=== PATIENT | female | born 1945 | race Hispanic/Latino ===

== ENCOUNTER 2022-09-01 13:32 | Emergency (ER) | payer OTHER ==
--- OUTSIDE RECORDS SUMMARY | 2022-09-01 13:43 | XMS REPORT | Continuity of Care Document ---
:1945 Author Organization [facility] t Address [address] [facility]. [address] [place] [address] Care Team Providers Name Role Phone Pcp, Patient Does Not Have A Primary Care Physician [id number] Zachary Darby Attending Clinician Unavailable CHONG ROCHA Attending Clinician Unavailable NOHEMI ROWELL Attending Clinician Unavailable [facility] SE[facility] Attending Clinician Unavailable LAB90 Attending Clinician Unavailable Nohemi Rowell MD Attending Clinician [phone] Alan Slater DO Attending Clinician Doctor Unassigned, [place] Attending Clinician Unavailable Pily Buchanan Attending Clinician Stephanie Jensen MD Attending Clinician STEPHANIE JENSEN Attending Clinician Unavailable Hiram-Mbayo_A_AH Attending Clinician Unavailable Hiram-Mbayo_A_AH Admitting Clinician Unavailable Payers Payer Name Policy Type Policy Number Effective Date Expiration Date S bonnie [employer]ARE [place] [id number] 2019 PLUS 00:00:00 CLASSIC/VALUE WELLCARE [place] 7 [id number] 2021 CLASSIC NO 00:00:00 PREMIUM R2T Wellcare C1 [id number] 2020 [facility] 00:00:00 - [facility] [place]LLCARE OF [place] [id number] 2019 - [place] 00:00:00 (MEDICARE REPLACEMENT/ADV ANTAGE - HMO) Problems Condition Condition Condition Status Onset Resolution Last Treating Co mments Source Name Details Category Date Date Treatment Clinician Date 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 12-10 Seybol d rhinitis rhinitis 00:00: - due to due to 00 Externa pollen pollen l No known No known Disease Unive rs active active ity of problems problems [facility] [id number] Essential Problem Active Comm on (primary) Spirit hypertensi - CHI on [facility] [id number] Noncomplia Problem Active Co mmon nce with Spirit dietary - CHI restrictio [facility] [id number] Current Problem Active Common moderate Spirit episode of - CHI major depressive [facility] disorder Medical without Center prior episode [id number] Primary Problem Active Common insomnia Spirit - [facility] [id number] 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 [facility] Allergies, Adverse Reactions, Alerts Allergy Allergy Status Severity Reaction(s) Onset Inactive Treating Comm ents Source Name Type Date Date Clinician Sulfamet Propensi Active Other Erika hoxazole ty to 7-20 reaction( Seybo ld W-Trimet adverse 00:00: s): - hoprim reaction 00 Unknown Externa s l Na Propensi Active Other Erika Benzoate ty to 2-11 reaction( Seybo ld -Sulfame adverse 00:00: s): - thoxazol reaction 00 Unknown Exter na e-Trimet s l hoprim Metronid Propensi Active Other Erika azole ty to 06-18 reaction( Seybold adverse 00:00: s): - reaction 00 Unknown Externa s l Kdc:Camp Propensi Active Other Erika ow ty to 06-18 reaction( Seybold Dye+Tart adverse 00:00: s): - razine+L reaction 00 Unknown Exter na evofloxa s l vipul Mupiroci Propensi Active Shortness of 2019-0 Univers n ty to Breath 07-03 ity of Calcium adverse 00:00: [place] reaction 00 Medical s Branch Sulfamet Propensi Active Shortness of 2019-0 Univers hoxazole ty to Breath 07-03 ity of adverse 00:00: [place] reaction 00 Medical s Branch MUPIROCI DRUG Active High SOB 2019-0 Univers N INGREDI 07-03 ity of CALCIUM 00:00: [place] 00 Medical Branch CODEINE DRUG Active Swelling 2019-0 Univers INGREDI - ity of 00:00: [place] 00 Medical Branch IODINE DRUG Active Swelling 2020-0 Univers INGREDI - ity of 00:00: [place] 00 Medical Branch LEVOFLOX DRUG Active SOB 2020-0 Univers ACIN INGREDI - ity of 00:00: [place] 00 Medical Branch METRONID DRUG Active SOB 2020-0 Univers AZOLE INGREDI - ity of 00:00: [place] 00 Medical Branch SULFAMET DRUG Active SOB 2020-0 Univers HOXAZOLE INGREDI - ity of 00:00: [place] 00 Medical Branch Codeine Propensi Active Swelling 2020-0 Kelse y ty to 07-03 Seybold adverse 00:00: - reaction 00 Externa s l Iodine Propensi Active Swelling 2020-0 Erika ty to 07-03 Seybold adverse 00:00: - reaction 00 Externa s l Levoflox Propensi Active Shortness of 2019-0 Other Erika acin ty to Breath 07-03 reaction( Seybold adverse 00:00: s): - reaction 00 Unknown Externa s l Metronid Propensi Active Swelling 2020-0 Chayo ey azole ty to 07-03 Seybold Hcl adverse 00:00: - reaction 00 Externa s l Mupiroci Propensi Active Shortness of 2020-0 Erika n ty to Breath 2-26 Seybold Calcium adverse 00:00: - reaction 00 Externa s l Sulfamet Propensi Active Shortness of Erika hoxazole ty to Breath 2-26 Seybold adverse 00:00: - reaction 00 Externa s l sulfamet sulfamet Active Unknown Commo n hoxazole hoxazole Spirit / / - CHI trimetho trimetho [facility] metronid metronid Active Unknown Commo n azole azole [facility] codeine codeine Active Unknown [facility] 12337 Drug Active Unknown Common allergy [facility] NO KNOWN Drug Active [facility] ALLERGIE Class ity [facility] Medical Branch Social History Social Habit Start Date Stop Date Quantity Comments Source Exposure to Not sure [facility] SARS-CoV-2 (event) [facility] Branch History of Tobacco [facility] - [facility] Use [facility] Sex Assigned At [facility] Sp yang - [facility] Tobacco use and 2019-07-03 2019-07-03 [facility] Medical Branch Smoking Status Start Date Stop Date Source Ex-smoker 2021-11-18 00:00:00 2021-11-18 00:00:00 Erika lewisbold - External Never Smoker [facility] Medications Ordered Filled Start Stop Current Ordering Indication Dosage Frequency Signature Comments Components Source Medication Medication Date Date Medication? Clinician (SIG) Name Name Pantoprazol Yes [id number] 20mg Take 1 Erika e Sodium 20 - tablet (20 Se ybold MG oral 00:00: mg total) - Tablet 00 by mouth Externa Delayed daily l Response Montelukast Yes [id number] 10mg Take 1 Erika (Singulair) - tablet (10 Se ybold 10 MG oral 00:00: mg total) - Tablet 00 by mouth Externa tablet nightly l Trazodone 2021- No [id number] 50mg Take 1 Erika HCl 50 MG 02-03- tablet (50 Sey bold oral Tablet 00:00: 00:00 mg total) - 00 :00 by mouth Externa nightly l Amlodipine Yes [id number] TAKE 1 K elsey Besylate 9-20 TABLET(2.5 Seybo ld 2.5 MG oral 00:00: MG) BY - Tablet 00 MOUTH Externa DAILY l Doxepin HCl 2021- No [id number] 1{tbl} QD Take 1 Erika 3 MG oral 9-15 -29 tablet by Seyb old Tablet 00:00: 00:00 mouth - 00 :00 nightly as Externa needed l predniSONE Yes [id number] 10mg Take 1 K elsey (DELTASONE) 8-05 tablet (10 Se ybold 10 MG oral 00:00: mg total) - tablet 00 by mouth Externa daily l FLUTICASONE Yes [id number] 50ug Use 1 K elsey PROPIONATE, 8-05 spray (50 Sey bold NASAL, 50 00:00: mcg total) - MCG/ACT 00 in each Externa nasal nostril l Suspension daily Levothyroxi Yes [id number] 25ug Take 1 Erika ne Sodium 7-20 tablet (25 Seyb old 25 MCG oral 00:00: mcg total) - Tablet 00 by mouth Externa daily l Lisinopril Yes [id number] 20mg Take 1 K elsey 20 MG oral 7-20 tablet (20 Sey bold Tablet 00:00: mg total) - 00 by mouth Externa daily l traMADol 50 2019-0 Yes 50mg Take 50 mg Univers mg tablet 2-26 by mouth ity of 19:52: every 6 [place] [address] (six) Medical hours as Branch needed. traMADol 50 2019-0 Yes 50mg Take 50 mg Univers mg tablet 2-26 by mouth ity of 19:52: every 6 [place] 01 (six) Medical hours as Branch needed. traMADol 50 2020-0 Yes 50mg Take 50 mg Univers mg tablet 2-26 by mouth ity of 13:52: every 6 [place] 01 (six) Medical hours as Branch needed. traMADol 50 2020-0 Yes 50mg Take 50 mg Univers mg tablet 2-26 by mouth ity of 13:52: every 6 [place] 01 (six) Medical hours as Branch needed. Lisinopril Lisinopril No 1{table QD Lisinopril 10 MG 10 MG t} 10 MG Lisinopril Lisinopril No 1{table QD Lisinopril 10 MG 10 MG t} 10 MG Lisinopril Lisinopril No Lisinopril 10 MG 10 MG 10 MG Lisinopril Lisinopril No Lisinopril 20 MG 20 MG 20 MG Lisinopril Lisinopril No Lisinopril 10 MG 10 MG 10 MG Lisinopril Lisinopril No Lisinopril 20 MG 20 MG 20 MG Lisinopril Lisinopril No Lisinopril 10 MG 10 MG 10 MG Lisinopril Lisinopril No Lisinopril 20 MG 20 MG 20 MG Lisinopril Lisinopril No Lisinopril 20 MG 20 MG 20 MG Lisinopril Lisinopril No Lisinopril 10 MG 10 MG 10 MG Lisinopril Lisinopril No Lisinopril 20 MG 20 MG 20 MG Lisinopril Lisinopril No Lisinopril 10 MG 10 MG 10 MG Lisinopril Lisinopril No Lisinopril 20 MG 20 MG 20 MG Lisinopril Lisinopril No Lisinopril 10 MG 10 MG 10 MG Vital Signs Vital Name Observation Time Observation Value Comments Source Systolic blood 2022-02-03 18:02:00 152 mm[Hg] Erika Womackold - pressure External Diastolic blood 2022-02-03 18:02:00 76 mm[Hg] Ciarra Arredondo - pressure External Heart rate 2022-02-03 18:02:00 67 /min Erika landaverde - External Body temperature 2022-02-03 18:02:00 36.33 Adrianne Chayo lewis Serolandoold - External Respiratory rate 2022-02-03 18:02:00 17 /min Chayo Womackmiguelina - External Body height 2022-02-03 18:02:00 160 cm Erika landaverde - External Body weight 2022-02-03 18:02:00 71.215 kg Erika landaverde - External BMI 2022-02-03 18:02:00 27.81 kg/m2 Erika landaverde - External Oxygen saturation in 2022-02-03 18:02:00 99 /min Erika Arredondo - Arterial blood by External Pulse oximetry height 2021-06-18 13:00:00 63 [in_i] Common S pirit - [facility] weight 2021-06-18 13:00:00 159 [lb_av] Common [facility] temperature 2021-06-18 13:00:00 97.0 [degF] Common [facility] bmi 2021-06-18 13:00:00 28.16 kg/m2 Common [facility] oximetry 2021-06-18 13:00:00 96 % Common [facility] respiratory rate 2021-06-18 13:00:00 19 /min Comm on [facility] blood pressure 2021-06-18 13:00:00 175 mm[Hg] Common [facility] - systolic [facility] blood pressure 2021-06-18 13:00:00 81 mm[Hg] Common [facility] - diastolic [facility] height 2021-06-04 13:00:00 63 [in_i] Common [facility] weight 2021-06-04 13:00:00 161 [lb_av] Common [facility] temperature 2021-06-04 13:00:00 96.9 [degF] Common [facility] bmi 2021-06-04 13:00:00 28.52 kg/m2 [facility] oximetry 2021-06-04 13:00:00 98 % [facility] respiratory rate 2021-06-04 13:00:00 16 /min Comm on [facility] blood pressure 2021-06-04 13:00:00 160 mm[Hg] Common [facility] - systolic [facility] blood pressure 2021-06-04 13:00:00 86 mm[Hg] Common [facility] - diastolic [facility] Systolic blood 2021-01-30 18:55:00 193 mm[Hg] Univer sity of [facility] Diastolic blood 2021-01-30 18:55:00 86 mm[Hg] Unive rsity of pressure [facility] Heart rate 2021-01-30 18:55:00 100 /min Universi [facility] Body temperature 2021-01-30 18:55:00 36.94 [facility]ne [facility] 2021-01-30 18:55:00 18 /min Univ [facility] Body weight 2021-01-30 18:55:00 71.668 kg Universi [facility] BMI 2021-01-30 18:55:00 27.99 kg/m2 [facility] Oxygen saturation in 2021-01-30 18:55:00 95 /min [facility] Arterial blood by [facility] Pulse oximetry Branch Systolic blood 2019-07-03 19:48:00 171 mm[Hg] Univer sity of pressure [facility] Diastolic blood 2019-07-03 19:48:00 75 mm[Hg] Unive [facility] Heart rate 2019-07-03 19:48:00 92 /min [facility] height 2019-07-03 19:48:00 160 cm [facility] Body weight 2019-07-03 19:48:00 74.844 kg [facility] BMI 2019-07-03 19:48:00 29.23 kg/m2 [facility] Procedures Procedure Date / Time Performing Clinician Source Performed AUTHORIZATION FOR 2021-08-04 05:01:00 Doctor Unassigned, No Univ [facility] RELEASE OF PHI Name [facility] XR FOOT 3+ VW LEFT 2021-01-30 19:15:36 Pily Nunez [facility] Encounters Start End Encounter Admission Attending Care Care Encounter Source Date/Time Date/Time Type Type Clinicians Facility Department ID 2021-12-06 Outpatient Darby, STLMLC STLC [id number] Common 10:09:01 Zachary [facility] 2021-10-14 Outpatient Darby, STLMLC STLC [id number] Common 11:26:02 Zachary [facility] 2021-08-31 Outpatient Darby, STLMLC STLMLC [id number] Common 10:49:02 [facility] 2021-07-05 Outpatient Darby, STLMLC STLMLC [id number] Common 11:33:02 Zachary [facility] 2021-06-03 Outpatient Darby, STSURAJ STLMLC [id number] Common 13:12:02 Zachary [facility] 2021-06-02 Outpatient Darby, STSURAJ STLMLC [id number] Common 13:39:59 Zachary 32996 [facility] 2021-06-02 Outpatient Darby, STLMLC STLMLC [id number] Common 12:59:06 Zachary 97033 [facility] 2021-03-09 Emergency [facility] [id number] Univers 01:22:00 [facility] 2022-09-27 2022-09-27 Outpatient ERIKA ROCHA [id number] Erika 15:00:00 15:00:00 CHONG Seybol d 2022-09-01 2022-09-01 Outpatient ERIKA ROWELL [id number] Erika 00:00:00 00:00:00 NOHEMI Seybol d 2022-07-30 2022-07-30 Outpatient ERIKA ROCHA [id number] Erika 00:00:00 00:00:00 CHONG Seybol d 2022-06-04 2022-06-04 Outpatient ERIKA ROCHA [id number] Erika 00:00:00 00:00:00 CHONG Seybol d 2022-05-02 2022-05-02 Outpatient ERIKA ROCHA [id number] Erika 00:00:00 00:00:00 CHONG Seybol d 2022-04-04 2022-04-04 Outpatient ERIKA ROWELL [id number] Erika 00:00:00 00:00:00 NOHEMI Seybol d 2022-02-10 2022-02-10 Outpatient ERIKA ROCHA [id number] Erika 00:00:00 00:00:00 CHONG Seybol d 2022-02-04 2022-02-04 Outpatient JOHN PAUL TURNER [id number] Erika 10:00:00 10:00:00 Seybol d 2022-02-04 2022-02-04 Outpatient AJ, ERIKA MANZANO [id number] Erika 00:00:00 00:00:00 CHONG Seybol d 2022-02-03 2022-02-03 Outpatient LAB90 ERIKA MANZANO [id number] Erika 14:00:00 14:00:00 Seybol d 2022-02-03 2022-02-03 Outpatient AJ ERIKA MANZANO [id number] Erika 13:00:00 13:00:00 CHONG Seybol d 2022-01-20 2022-01-20 Outpatient AJ, ERIKA MANZANO [id number] Erika 08:30:00 08:30:00 CHONG Seybol d 2022-01-19 2022-01-19 Outpatient TARYNTone ERIKA MANZANO [id number] Erika 11:00:00 11:00:00 CHONG Seybol d 2021-12-22 2021-12-22 Outpatient LAB90 ERIKA MANZANO [id number] Erika 11:45:00 11:45:00 Seybol d 2021-12-22 2021-12-22 Office John Paul Rowell [id number] Erika 11:00:00 11:30:00 Visit Nohemi Layne [id number] Se rolandoold Somogyi [id number] [id number] 2021-12-10 2021-12-10 Office John Paul Slater [id number] Erika 10:45:00 11:15:00 Visit Alan Layne [id number] Se ybold [id number] [id number] 2021-12-09 2021-12-09 Outpatient ERIKA ROWELL [id number] Erika 00:00:00 00:00:00 NOHEMI Seybol d 2021-12-06 2021-12-06 (TEL) STLMLC STLMLC [id number] Co mmon 00:00:00 00:00:00 [facility] 2021-12-01 2021-12-01 Outpatient ERIKA ROWELL [id number] Erika 00:00:00 00:00:00 NOHEMI Seybol d 2021-11-24 2021-11-24 Outpatient LAB90 ERIKA ERIKA [id number] Erika 11:25:00 11:25:00 Seybol d 2021-11-24 2021-11-24 Office John Paul Rowell [id number] Erika 10:30:00 11:00:00 Visit Nohemi Layne [id number] Se aura [place] [id number] 2021-11-18 2021-11-18 Outpatient LAB90 ERIKA MANZANO [id number] Erika 11:30:00 11:30:00 Seybol d 2021-11-18 2021-11-18 Office John Paul Rowell [id number] Erika 10:45:00 11:15:00 Visit Nohemi Layne [id number] Se aura Aman 1.2.7.2.686 [id number] 2021-11-16 2021-11-16 Outpatient SORIN ERIKA MANZANO [id number] Erika 10:00:00 10:00:00 NOHEMI Womackol jose 2021-11-11 2021-11-11 Outpatient SORIN ERIKA MANZANO [id number] Erika 13:45:00 13:45:00 NOHEMI rolandool jose 2021-08-31 2021-08-31 (TEL) [facility] STLC [id number] Co mmon 00:00:00 00:00:00 [facility] 2021-08-04 2021-08-04 Orders Doctor DOOLEY [id number] Univers 00:00:00 00:00:00 Only Unassigned, PATRICIA [id number] ity of [place] [facility] [id number] Servando as [id number] [facility] 009 Branch 2021-06-22 2021-06-22 (TEL) STLC STLMLC [id number] Co mmon 00:00:00 00:00:00 [facility] 2021-06-18 2021-06-18 OFFICE STLMLC STLMLC [id number] Co mmon 00:00:00 00:00:00 VISIT Spirit ESTAB PT - CHI LEVEL 4 [facility] 2021-06-17 2021-06-17 (TEL) STLMLC STLMLC [id number] Co mmon 00:00:00 00:00:00 [facility] 2021-06-04 2021-06-04 OFFICE STLMLC STLMLC [id number] Co mmon 00:00:00 00:00:00 VISIT EST Spir it PT LEVEL 3 - CH[facility] 2021-05-11 2021-05-11 (TEL) STLMLC STLMLC [id number] Co mmon 00:00:00 00:00:00 [facility] 2021-01-30 2021-01-30 Emergency [facility], [facility] [id number] Univers 13:55:00 15:08:00 Pily [place] [id number] i ty of [place] 4.2.7.2.686 [facility] [id number] [facility] 084 Branch 2020-12-29 2020-12-29 (TEL) STLMLC STLMLC [id number] Co mmon 00:00:00 00:00:00 [facility] 2020-11-12 2020-11-12 Outpatient STLMLC STLMLC [id number] Common 00:00:00 00:00:00 [facility] 2020-11-12 2020-11-12 Outpatient STLMLC STLMLC [id number] Common 00:00:00 00:00:00 [facility] 2020-09-08 2020-09-08 Outpatient STLMLC STLMLC [id number] Common 00:00:00 00:00:00 [facility] 2019-07-03 2019-07-03 [facility] [id number] Univers 13:28:46 14:10:35 Visit Stephanie Garvey [id number] it y of Surgical 4.2.7.2.686 Servando as Specialti [id number] Il dical [address] Branch [place] 2019-07-03 2019-07-03 Outpatient Melanie [facility]EN [facility] [id number] Univers 13:45:00 13:45:00 STEPHANIE francisco [facility] 2019-06-26 2019-06-26 Outpatient Hiram-Mbayo VFP VFP [id number] [facility] 07:22:00 07:22:00 _A_AH [id number] Family Practic e 2019-06-26 2019-06-26 Outpatient Hiram-Mbayo VFP VFP [id number] [place] 07:22:00 07:22:00 _A_AH [id number] Family Practic e 2019-06-26 2019-06-26 Outpatient Hiram-Mbayo VFP VFP [id number] [facility] 07:22:00 07:22:00 _A_AH [id number] Family Practic e Results This patient has no known results.
[2022-09-01 14:42] LABS: Absolute Lymphocytes (CBC) 1.9 K/uL (0.7-4.9); Hematocrit 30.1 % (36.0-45.0); Lymphocytes % 32.5 % (15.3-44.8); MCV 95.1 fL (80-100); MPV 8.7 fL (7.6-11.3); RBC Red Blood Cell Count 3.16 M/uL (3.86-4.86)
--- NOTE | 2022-09-01 14:45 | RAD REPORT ---
EXAM DESCRIPTION: CT - Abdomen Pelvis Wo Contrast - 09/01/2022 2:07 pm CLINICAL HISTORY: ABD PAIN COMPARISON: CT ABDOMEN PELVIS WO CONTRAST dated 12/09/2011; CT ABDOMEN PELVIS WO CONTRAST dated 012; CT ABDOMEN PELVIS WO CONTRAST dated 12/08/2010; CT ABDOMEN PELVIS WO CONTRAST dated 06/09/2010 TECHNIQUE: Thin cut axial CT imaging of the abdomen and pelvis was performed without IV contrast. Mu ltiplanar reformats were generated and reviewed. All CT scans are performed using dose optimization technique as appropriate and may include automated exposure control or mA/KV adjustment according to patient size. FINDINGS: No suspicious findings in the lung bases. The liver demonstrates nodular contour, suggestive of cirrhosis, a progressive finding since the 2011 study. Spleen is slightly bulky, but not discretely enlarged. Prominent splenorenal varicosities. Ad renal glands, and pancreas show no suspicious findings. Gallbladder and biliary tree are also without suspicious finding. Symmetric renal contour, without suspicious parenchymal findings within limits of noncontrast techniq ue. No evidence of radiopaque calculi or hydroureteronephrosis. No dilated bowel loops or bowel wall thickening. No free air, or free fluid. Nonspecific fat strandin g in the lower retroperitoneum, and presacral space. Mild colonic diverticulosis. No hernia, mass or bulky lymphadenopathy. The urinary bladder is suboptimally distended, without significant finding. No suspicious bony findings. IMPRESSION: Stigmata of cirrhosis and prominent splenorenal varicosities, suggestive of portal hyper tension. Nonspecific mild edematous changes in the lower retroperitoneum and presacral space. No evidence of f ocal inflammatory process.
[2022-09-01 15:01] LABS: Albumin 2.8 g/dL (3.4-5.0); Bilirubin Total 1.1 mg/dL (0.2-1.0); Potassium 3.7 mEq/L (3.5-5.1); Protein, Total 7.7 g/dL (6.4-8.2)
[2022-09-01 15:16] LABS: Specific Gravity 1.022 (1.005-1.030); Urine Bacteria None Seen /HPF (<20); Urine Bilirubin NEGATIVE (Negative); Urine Blood Negative (Negative); Urine Clarity Turbid (Clear); Urine Color Yellow (Yellow); Urine Glucose NEGATIVE (Negative); Urine Mucus Slight /HPF (None Seen); Urine Protein 1+ (Negative); Urine RBC <5 /HPF (None Seen); Urine Urobilinogen 2+ (Normal)
--- NOTE | 2022-09-01 15:30 | EDPHYS ---
Physician Documentation [facility] Name: Evie Gill Age: 76 yrs Sex: Female : 1945 Arrival Date: 09/01/2022 Time: 13:32 Bed 10 Private MD: ED Physician New Moreno HPI: 09/01 14:40 This 76 yrs old Female presents to ER via Wheelchair with complaints of kb Abdominal Pain. 14:40 The patient presents with abdominal pain. Onset: The symptoms/episode began/occurred kb 1.5 week(s) ago. The symptoms do not radiate. Associated signs and symptoms: Pertinent positives: constipation, Pertinent negatives: nausea, vomiting, and diarrhea, fever. The symptoms are described as constant. Modifying factors: The symptoms are alleviated by nothing, the symptoms are aggravated by nothing. Severity of pain: At its worst the pain was moderate in the emergency department the pain is unchanged. The patient has experienced similar episodes in the past. The patient has not recently seen a physician. Historical: - Allergies: 13:53 Bactrim; ll1 13:53 Codeine; ll1 13:53 Flagyl; ll1 13:53 Iodine; ll1 13:53 Levaquin; ll1 13:54 PAPAYA; ll1 - PMHx: 13:53 COPD; Cirrhosis; Diabetes - NIDDM; Bronchitis; Emphysema; ll1 - Immunization history:: Adult Immunizations up to date. - Social history:: Smoking status: Patient/guardian denies using tobacco, the patient reports quitting approximately 45 years ago. ROS: 14:39 Constitutional: Negative for fever, chills, and weight loss. kb 14:39 Abdomen/GI: Positive for abdominal pain, constipation, Negative for nausea, vomiting, and diarrhea. 14:39 All other systems are negative. Exam: 14:39 Constitutional: This is a well developed, well nourished patient who is awake, alert, kb and in no acute distress. Head/Face: Normocephalic, atraumatic. ENT: Moist Mucous membranes Cardiovascular: Regular rate and rhythm with a normal S1 and S2. No gallops, murmurs, or rubs. No pulse deficits. Respiratory: Respirations even and unlabored. No increased work of breathing. Talking in full sentences Skin: Warm, dry with normal turgor. Normal color. MS/ Extremity: Pulses equal, no cyanosis. Neurovascular intact. Full, normal range of motion. Neuro: Awake and alert, GCS 15, oriented to person, place, time, and situation. Moves all extremities. Normal gait. 14:39 Abdomen/GI: Inspection: abdomen appears normal, Bowel sounds: normal, Palpation: soft, in all quadrants, mild abdominal tenderness, in the left upper quadrant and left lower quadrant. Vital Signs: 13:54 BP 174 / 90; Pulse 99; Resp 18; Temp 98.1; Pulse Ox 96% ; Height 5 ft. 3 in. ; Pain ll1 9/10; 15:49 BP 178 / 76; Pulse 89; Resp 16; Pulse Ox 97% on R/A; db 13:54 Pain Scale: Adult ll1 MDM: 13:48 Patient medically screened. kb 14:40 Data reviewed: vital signs, nurses notes. kb 15:27 Differential diagnosis: bowel obstruction, diverticulitis, gastritis, non-specific abd kb pain. Counseling: I had a detailed discussion with the patient and/or guardian regarding: the historical points, exam findings, and any diagnostic results supporting the discharge/admit diagnosis, lab results, radiology results, the need for outpatient follow up, a family practitioner, a case managers, to return to the emergency department if symptoms worsen or persist or if there are any questions or concerns that arise at home. ED course: Pt does not want an enema here and does not want staff to insert suppository, but requests that we give her a laxative suppository to administer to herself. . 09/01 13:48 Order name: CBC with Diff; Complete Time: 14:48 kb 09/01 13:48 Order name: CMP; Complete Time: 15:05 kb 09/01 13:48 Order name: Lipase; Complete Time: 15:05 kb 09/01 13:48 Order name: Urinalysis w/ reflexes; Complete Time: 15:20 kb 09/01 13:48 Order name: CT Abd/Pelvis - Without Contrast; Complete Time: 14:48 kb 09/01 13:48 Order name: IV Saline Lock; Complete Time: 14:38 kb 09/01 13:48 Order name: Labs collected and sent; Complete Time: 14:38 kb Administered Medications: 15:24 CANCELLED (Patient Refused): Fleet Enema TX 133 ml TX once; may repeat once kb 15:40 Drug: Dulcolax TX Suppository 10 mg Route: TX; db 15:50 Follow up: Response: No adverse reaction db Disposition: 19:05 Co-signature as Attending Physician, New Moreno DO I was immediately available on-site ms3 in the Emergency Department for consultation in the care of the patient. Disposition Summary: 09/01/22 15:30 Discharge Ordered Location: Home kb Condition: Stable kb Diagnosis - Abdominal pain, Generalized - left kb Followup: kb - With: Emergency Department - When: As needed - Reason: Worsening of condition Followup: kb - With: Private Physician - When: 2 - 3 days - Reason: Recheck today's complaints, Continuance of care, Re-evaluation by your physician Discharge Instructions: - Discharge Summary Sheet kb - Constipation, Adult, [id number] kb - Abdominal Pain, Adult, [id number] kb Forms: - Medication Reconciliation Form kb - Thank You Letter kb - Antibiotic Education kb - Prescription Opioid Use kb Signatures: Dispatcher [employer] EDLA Nisreen Layne FNP-Nick VILLASEÑOR-Chrissy Hendricks, RN RN 1 New Moreno DO DO ms3 Charlene Barr, RN RN db Corrections: (The following items were deleted from the chart) 13:56 13:53 Social history: Smoking status: Patient denies any tobacco usage or history of. ll1 ll1 15:24 15:21 Fleet Enema TX 133 ml TX once; may repeat once ordered. kb kb
--- NOTE | 2022-09-01 15:30 | ER ---
Nurse's Notes [facility] Name: Evie Gill Age: 76 yrs Sex: Female : 1945 Arrival Date: 09/01/2022 Time: 13:32 Bed 10 Private MD: Diagnosis: Abdominal pain, Generalized-left Presentation: 09/01 13:54 Coronavirus screen: Client denies travel out of the [place] in the last 14 days. At this ll1 time, the client does not indicate any symptoms associated with coronavirus-19. Ebola Screen: Patient denies travel to an Ebola-affected area in the 21 days before illness onset. Initial Sepsis Screen: Does the patient meet any 2 criteria? No. Patient's initial sepsis screen is negative. Does the patient have a suspected source of infection? Yes: Acute abdominal pain. Risk Assessment: Do you want to hurt yourself or someone else? Patient reports no desire to harm self or others. Onset of symptoms was August 22, 2022. 13:54 Method Of Arrival: Wheelchair ll1 13:54 Acuity: WON 3 ll1 13:55 Chief complaint: Patient states: Abd pain for 10 days. + constipation. No fever. ll1 Historical: - Allergies: 13:53 Bactrim; ll1 13:53 Codeine; ll1 13:53 Flagyl; ll1 13:53 Iodine; ll1 13:53 Levaquin; ll1 13:54 PAPAYA; ll1 - PMHx: 13:53 COPD; Cirrhosis; Diabetes - NIDDM; Bronchitis; Emphysema; ll1 - Immunization history:: Adult Immunizations up to date. - Social history:: Smoking status: Patient/guardian denies using tobacco, the patient reports quitting approximately 45 years ago. Screenin:49 [facility] ED Fall Risk Assessment (Adult) History of falling in the last 3 months, db including since admission No falls in past 3 months (0 pts) Confusion or Disorientation No (0 pts) Intoxicated or Sedated No (0 pts) Impaired Gait Yes (1 pt) Mobility Assist Device Used Yes (1 pt) Altered Elimination No (0 pt) Score/Fall Risk Level 0 - 2 = Low Risk Oriented to surroundings, Maintained a safe environment. Abuse screen: Denies threats or abuse. Denies injuries from another. Nutritional screening: No deficits noted. Tuberculosis screening: No symptoms or risk factors identified. Assessment: 15:24 Reassessment: Patient appears in no apparent distress at this time. Patient and/or db family updated on plan of care and expected duration. Pain level reassessed. Patient is alert, oriented x 3, equal unlabored respirations, skin warm/dry/pink. General: Appears in no apparent distress. comfortable, Behavior is calm, cooperative. Pain: Complains of pain in abdomen. Neuro: Level of Consciousness is awake, alert, obeys commands, Oriented to person, place, time, situation, Speech is normal. GI: Bowel sounds present X 4 quads. Abd is soft. 15:49 Reassessment: Patient appears in no apparent distress at this time. Patient and/or db family updated on plan of care and expected duration. Pain level reassessed. Patient is alert, oriented x 3, equal unlabored respirations, skin warm/dry/pink. Patient states feeling better. Vital Signs: 13:54 BP 174 / 90; Pulse 99; Resp 18; Temp 98.1; Pulse Ox 96% ; Height 5 ft. 3 in. ; Pain ll1 9/10; 15:49 BP 178 / 76; Pulse 89; Resp 16; Pulse Ox 97% on R/A; db 13:54 Pain Scale: Adult ll1 ED Course: 13:37 Patient arrived in ED. mr 13:39 Nisreen Layne, [facility] kb 13:39 New Moreno DO is Attending Physician. kb 13:55 Triage completed. ll1 13:56 Arm band placed on. ll1 14:08 CT Abd/Pelvis - Without Contrast In Process Unspecified. EDMS 14:38 CBC with Diff Sent. mb9 14:38 CMP Sent. mb9 14:38 Lipase Sent. mb9 14:39 Inserted saline lock: 20 gauge in left antecubital area, using aseptic technique. rs5 14:40 Urinalysis w/ reflexes Sent. rs5 15:22 Charlene Barr, MICHAEL is Primary Nurse. db 15:49 Patient has correct armband on for positive identification. Bed in low position. Call db light in reach. Side rails up X 1. Warm blanket given. 15:50 No provider procedures requiring assistance completed. IV discontinued, intact, db bleeding controlled, No redness/swelling at site. Administered Medications: 15:24 CANCELLED (Patient Refused): Fleet Enema AR 133 ml AR once; may repeat once kb 15:40 Drug: Dulcolax AR Suppository 10 mg Route: AR; db 15:50 Follow up: Response: No adverse reaction db Medication: 15:49 VIS not applicable for this client. db Outcome: 15:30 Discharge ordered by . kb 15:50 Discharged to home via wheelchair, with family. db 15:50 Condition: stable 15:50 Discharge instructions given to patient, family, Instructed on discharge instructions, follow up and referral plans. 15:51 Patient left the ED. db Signatures: Dispatcher [employer] EDMS Nisreen Layne, CHARLEEN-C PUBLIC STENOGRAPHER-Ckclaire Antonio, Carmela etienne Chrissy Connors, RN RN ll1 Charlene Barr, RN RN Carmela Alvarez, RN RN mb9 David Gaytan rs5 Corrections: (The following items were deleted from the chart) 13:56 13:53 Social history: Smoking status: Patient denies any tobacco usage or history of. ll1 ll1 13:57 13:54 Pulse 99bpm; Resp 18bpm; Pulse Ox 96%; Temp 98.1F; Pain 9/10, Adult; ll1 ll1
[2022-09-01] MEDS ORDERED: BISACODYL 10 MG RECTAL SUPP ONE (15:49)
[2022-09-01 15:55] VITALS: TEMP 98.1
[2022-09-01 15:57] VITALS: BP 178/76; O2SAT 97
== END 2022-09-01 15:51 | disposition home or self-care (01) ==
LOC: ER 13:32
DX: R10.84 Generalized abdominal pain (principal); K59.00 Constipation, unspecified; Z88.1 Allergy status to other antibiotic agents; Z88.5 Allergy status to narcotic agent; Z91.018 Allergy to other foods
CPT/HCPCS: 36415; 74176; 80053; 81001; 83690; 85025

== ENCOUNTER 2023-01-11 15:25 | Inpatient (IN) | payer OTHER ==
--- OUTSIDE RECORDS SUMMARY | 2023-01-11 15:29 | XMS REPORT | Continuity of Care Document ---
:1945 Author Organization [facility] t Address [address] [place] [address] Care Team Providers Name Role Phone Pcp, Patient Does Not Have A Primary Care Physician [id number] Zachary Darby Attending Clinician Unavailable CHONG ROCHA Attending Clinician Unavailable NOHEMI ROWELL Attending Clinician Unavailable LAB90 Attending Clinician Unavailable YUE GREENVILLE Attending Clinician Unavailable Nohemi Rowell MD Attending Clinician [phone] Alan Slater DO Attending Clinician Doctor Unassigned, Happy Attending Clinician Unavailable Pily Buchanan Attending Clinician Stephanie Jensen MD Attending Clinician STEPHANIE JENSEN Attending Clinician Unavailable Hiram-Mbayo_A_AH Attending Clinician Unavailable Hiram-Mbayo_A_AH Admitting Clinician Unavailable Payers Payer Name Policy Type Policy Number Effective Date Expiration Date S bonnie [employer] [place] [id number] 2019 PLUS 00:00:00 CLASSIC/VALUE WELLCARE [place]P [id number] 2021 CLASSIC NO 00:00:00 PREMIUM R2T Wellcare C1 [id number] 2020 [facility] 00:[facility] - [facility] [place]LLCARE OF [place] [id number] 2019 - [place] 00:00:00 (MEDICARE REPLACEMENT/ADV ANTAGE - HMO) Problems Condition Condition Condition Status Onset Resolution Last Treating Co mments Source Name Details Category Date Date Treatment Clinician Date 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:00: - major major 00 Externa 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 features 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 09-27 Se ybold to to 00:00: - conditions conditions 00 Ex terna classified classified l elsewhere elsewhere Hepatic Hepatic Disease Active Erika cirrhosis, cirrhosis, 09-27 Se ybold unspecifie unspecifie 00:00: - d hepatic d hepatic 00 Exte rna cirrhosis cirrhosis l type, type, unspecifie unspecifie d whether d whether ascites ascites present present 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 00:00: - mellitus mellitus 00 Ui Developer a without without l complicati complicati on, on, without without long-term long-term current current use of use of insulin insulin Stage 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 00:00: - disease disease 00 Externa l Vitamin D Vitamin D Disease Active Wes ruba deficiency deficiency 02-04 Se ybold 00:00: - 00 Externa l 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 12-10 Seybol d rhinitis rhinitis 00:00: - due to due to 00 Externa pollen pollen l [id number] Current Problem Active Common moderate Spirit episode of - [facility] major [facility] depressive [facility] disorder Medical without Center prior episode [id number] Primary Problem Active Common insomnia Spirit - [facility] [id number] Type 2 [place] [address] diabetes Spirit mellitus - CHI with other diabetic [facility] kidney Medical complicati Center on [id number] Type 2 Problem Active Common diabetes Spirit mellitus - [facility] with [facility] hiren, Medical without Center long-term current use of insulin [id number] Chronic Problem Active Common obstructiv [facility] COPD Center type [id number] Nonalcohol Problem Active Co mmon ic Spirit [place] - [facility]I titis (BOATENG) [facility] No known No known Disease Unive rs active active ity of problems problems [facility] [id number] Essential Problem Active Comm on (primary) Spirit hypertensi - [facility] on [facility] [id number] Noncomplia Problem Active Co mmon nce with Spirit dietary - CHI restrictio [facility] Allergies, Adverse Reactions, Alerts Allergy Allergy Status [...] Propensi Active Other Erika azole ty to 2-11 reaction( Seybold adverse 00:00: s): - reaction 00 Unknown Externa s l Kdc:Cache Propensi Active Other Erika ow ty to 2-11 reaction( Seybold Dye+Tart adverse 00:00: s): - razine+L reaction 00 Unknown Exter na evofloxa s l vipul Mupiroci Propensi Active Shortness of 2020-0 Univers n ty to Breath 2-26 ity of Calcium adverse 00:00: [place] reaction 00 [facility] s [facility] Sulfamet Propensi Active Shortness of 2020-0 Univers hoxazole ty to Breath 2-26 ity of adverse 00:00: [place] reaction 00 Medical s Branch MUPIROCI DRUG Active High SOB 2020-0 Univers N INGREDI 2-26 ity of CALCIUM 00:00: [facility] CODEINE DRUG Active Swelling 2020-0 Univers INGREDI 2-26 ity of 00:00: [facility] IODINE DRUG Active Swelling 2020-0 Univers INGREDI 2-26 ity of 00:00: [place] [facility] LEVOFLOX DRUG Active SOB 2019-0 Univers ACIN INGREDI - ity of 00:00: [place] 00 [facility] Branch METRONID DRUG Active SOB 2019-0 Univers AZOLE INGREDI - ity of 00:00: [place] 00 [facility] SULFAMET DRUG Active SOB 2019-0 Univers HOXAZOLE INGREDI 07-03 ity of 00:00: [place] 00 [facility] Codeine Propensi Active Swelling 2019-0 Kelse y ty to 07-03 Seybold adverse 00:00: - reaction 00 Externa s l Iodine Propensi Active Swelling 2019-0 Erika ty to 07-03 Seybold adverse 00:00: - reaction 00 Externa s l Levoflox Propensi Active Shortness of Other Erika acin ty to Breath 2 reaction( Seybold adverse 00:00: s): - reaction 00 Unknown Externa s l Metronid Propensi Active Swelling 2019-0 Chayo ey azole ty to 07-03 Seybold Hcl adverse 00:00: - reaction 00 Externa s l Mupiroci Propensi Active Shortness of 0 Erika n ty to Breath 07-03 Seybold Calcium adverse 00:00: - reaction 00 Externa s l Sulfamet Propensi Active Shortness of 2019-0 Erika hoxazole ty to Breath - Seybold adverse 00:00: - reaction 00 Externa s l Levoflox Propensi Active Shortness of Other Erika acin ty to Breath 2-17 reaction( Seybold adverse 00:00: s): - reaction 00 UnknownOt Exter na s her l reaction( s): Nausea/Vo miting Metronid Propensi Active Other Erika azole ty to 2-17 reaction( Seybold adverse 00:00: s): - reaction 00 Nausea/Vo Exter na s miting l Papaya Propensi Active Other Erika Derivati ty to 2-17 reaction( Seybo ld ves adverse 00:00: s): - reaction 00 Anaphylax Exter na s is l Trimetho Propensi Active Other Erika prim ty to 2-17 reaction( Seybold adverse 00:00: s): - reaction 00 Nausea/Vo Exter na s miting l NO KNOWN Drug Active Univers ALLERGIE Class ity of S [facility] sulfamet sulfamet Active Unknown Commo n hoxazole hoxazole [facility] / / - [facility]I trimetho trimetho [facility] metronid metronid Active Unknown Commo n azole azole [facility] codeine codeine Active Unknown [facility] [address] Drug Active Unknown Common allergy [facility] Social History Social Habit Start Date Stop Date Quantity Comments Source History of Tobacco [facility] - Use [facility] Sex Assigned At [facility] yang - [facility] Exposure to Not sure [facility] SARS-CoV-2 (event) [facility] Gender identity Erika chavarria - External Sexual orientation Erika Arredondo - External History of Social 2021-11-18 2021-11-18 Erika Arredondo - function 00:00:00 00:00:00 External Tobacco use and 2019-07-03 2019-07-03 Former user Universi ty of exposure 00:00:00 00:00:00 [facility] Smoking Status Start Date Stop Date Source Ex-smoker 2021-11-18 00:00:00 2021-11-18 00:00:00 Erika lewisbold - External Never Smoker [facility] Medications Ordered Filled Start Stop Current Ordering Indication Dosage Frequency Signature Comments Components Source Medication Medication Date Date Medication? Clinician (SIG) Name Name buPROPion Yes [id number] 75mg Take 1 Nehemiah lsey HCl 75 MG 8-10 tablet (75 Seyb old oral Tablet 00:00: mg total) - 00 by mouth Externa daily l Levothyroxi Yes [id number] 112ug Take 1 rEika ne Sodium 8-10 tablet Seybold 112 MCG 00:00: (112 mcg - oral Tablet 00 total) by Ext kelsea mouth l daily Nitrofurant Yes [id number] 100mg Take 1 Erika oin Monohyd 7-05 capsule Seybo ld Macro 00:00: (100 mg - (Macrobid) 00 total) by Exte rna 100 MG oral mouth 2 l Capsule times daily Albuterol Yes [id number] 2{puff} Q.25D Inhale 2 Erika HFA 108 (90 6-26 puffs into Se ybold Base) 00:00: the lungs - MCG/ACT IN 00 every 6 Ui Developer a AERS hours as l needed for wheezing Albuterol Yes [id number] 2{puff} Q.25D Inhale 2 Erika HFA 108 (90 6-26 puffs into Se ybold Base) 00:00: the lungs - MCG/ACT IN 00 every 6 Ui Developer a AERS hours as l needed for wheezing NIFEdipine Yes [id number] Apply 1 Erika 0.2 % in 6-20 applicatio Seybo ld Lidocaine 5 00:00: n. - % 60 g 00 rectally 2 Externa compounded times l rectal daily ointment (Apply pea-sized amount to fingertip and then apply just inside anus) Escitalopra Yes [id number] 10mg Take 1 Erika m Oxalate 6-20 tablet (10 Seyb old (Lexapro) 00:00: mg total) - 10 MG oral 00 by mouth Exter na Tablet daily l Montelukast Yes [id number] 10mg Take 1 Erika (SINGULAIR) 6-20 tablet (10 Se ybold 10 MG oral 00:00: mg total) - Tablet 00 by mouth Externa tablet nightly l Vitamin D, Yes [id number] 25280U Take 1 Erika Ergocalcife 6-20 capsule Seybo ld rol, 1.25 00:00: (50,000 - MG (69407 00 units Externa UT) oral total) by l Capsule mouth once a week NIFEdipine Yes [id number] Apply 1 Erika 0.2 % in 6-20 applicatio Seybo ld Lidocaine 5 00:00: n. - % 60 g 00 rectally 2 Externa compounded times l rectal daily ointment (Apply pea-sized amount to fingertip and then apply just inside anus) Escitalopra Yes [id number] 10mg Take 1 Erika m Oxalate 6-20 tablet (10 Seyb old (Lexapro) 00:00: mg total) - 10 MG oral 00 by mouth Exter na Tablet daily l Montelukast Yes [id number] 10mg Take 1 Erika (SINGULAIR) 6-20 tablet (10 Se ybold 10 MG oral 00:00: mg total) - Tablet 00 by mouth Externa tablet nightly l Vitamin D, Yes [id number] 66720Y Take 1 Erika Ergocalcife 6-20 capsule Seybo ld rol, 1.25 00:00: (50,000 - MG (39308 00 units Externa UT) oral total) by l Capsule mouth once a week NIFEdipine Yes [id number] Apply 1 Erika 0.2 % in 6-20 applicatio Seybo ld Lidocaine 5 00:00: n. - % 60 g 00 rectally 2 Externa compounded times l rectal daily ointment (Apply pea-sized amount to fingertip and then apply just inside anus) Escitalopra Yes [id number] 10mg Take 1 Erika m Oxalate 6-20 tablet (10 Seyb old (Lexapro) 00:00: mg total) - 10 MG oral 00 by mouth Exter na Tablet daily l Montelukast Yes [id number] 10mg Take 1 Erika (SINGULAIR) 6-20 tablet (10 Se ybold 10 MG oral 00:00: mg total) - Tablet 00 by mouth Externa tablet nightly l Vitamin D, Yes [id number] Take 1 Erika Ergocalcife 6-20 capsule Seybo ld rol, 1.25 00:00: (50,000 - MG (98947 00 units Externa UT) oral total) by l Capsule mouth once a week Hydrocortis Yes [id number] 25mg Apply 1 Erika one Acetate 5-23 suppositor Se ybold (Hemmorex-H 00:00: y (25 mg - C) 25 MG 00 total) Externa rectal rectally 2 l Suppository times daily Trazodone Yes [id number] 100mg Take 1 Ke lsey HCl 100 MG 5-23 tablet Seybold oral Tablet 00:00: (100 mg - 00 total) by Externa mouth l nightly Hydrocortis Yes [id number] 25mg Apply 1 Erika one Acetate 5-23 suppositor Se ybold (Hemmorex-H 00:00: y (25 mg - C) 25 MG 00 total) Externa rectal rectally 2 l Suppository times daily Trazodone 0 Yes [id number] 100mg Take 1 Ke lsey HCl 100 MG 5-23 tablet Seybold oral Tablet 00:00: (100 mg - 00 total) by Externa mouth l nightly Hydrocortis Yes [id number] 25mg Apply 1 Erika one Acetate 5-23 suppositor Se ybold (Hemmorex-H 00:00: y (25 mg - C) 25 MG 00 total) Externa rectal rectally 2 l Suppository times daily Trazodone Yes [id number] 100mg Take 1 Ke lsey HCl 100 MG 5-23 tablet Seybold oral Tablet 00:00: (100 mg - 00 total) by Externa mouth l nightly Hydrocortis Yes [id number] 25mg Apply 1 Erika one Acetate 5-23 suppositor Se ybold (Hemmorex-H 00:00: y (25 mg - C) 25 MG 00 total) Externa rectal rectally 2 l Suppository times daily Trazodone Yes [id number] 100mg Take 1 Ke lsey HCl 100 MG 5-23 tablet Seybold oral Tablet 00:00: (100 mg - 00 total) by Externa mouth l nightly NIFEdipine Yes [id number] Apply 1 Erika 0.2 % in 5-23 applicatio Seybo ld Lidocaine 5 00:00: n. - % 60 g 00 rectally 2 Externa compounded times l rectal daily ointment (Apply pea-sized amount to fingertip and then apply just inside anus) Hydrocortis Yes [id number] 25mg Apply 1 Erika one Acetate 5-23 suppositor Se ybold (Hemmorex-H 00:00: y (25 mg - C) 25 MG 00 total) Externa rectal rectally 2 l Suppository times daily Escitalopra Yes [id number] 10mg Take 1 Erika m Oxalate 5-23 tablet (10 Seyb old (Lexapro) 00:00: mg total) - 10 MG oral 00 by mouth Exter na Tablet daily l Trazodone Yes [id number] 100mg Take 1 Ke lsey HCl 100 MG 5-23 tablet Seybold oral Tablet 00:00: (100 mg - 00 total) by Externa mouth l nightly NIFEdipine 2022- No [id number] Apply 1 Erika 0.2 % in 09-27 applicatio Seyb old Lidocaine 5 00:00: 00:00 n. - % 60 g 00 :00 rectally 2 Externa compounded times l rectal daily ointment (Apply pea-sized amount to fingertip and then apply just inside anus) Escitalopra 2022- No [id number] 10mg Take 1 Erika m Oxalate 09-27 tablet (10 Sey bold (Lexapro) 00:00: 00:00 mg total) - 10 MG oral 00 :00 by mouth Exter na Tablet daily l Pantoprazol Yes [id number] TAKE 1 Erika e Sodium 20 3-26 TABLET(20 Sey bold MG oral 00:00: MG) BY - Tablet 00 MOUTH Externa Delayed DAILY l Response Pantoprazol 2022- No [id number] TAKE 1 Erika e Sodium 20 3-26 -20 TABLET(20 Se ybold MG oral 00:00: 00:00 MG) BY - Tablet 00 :00 MOUTH Externa Delayed DAILY l Response Montelukast Yes [id number] TAKE 1 Erika (SINGULAIR) 1-28 TABLET(10 Sey bold 10 MG oral 00:00: MG) BY - Tablet 00 MOUTH Externa tablet EVERY l NIGHT Montelukast 2022- No [id number] TAKE 1 Erika (SINGULAIR) 1-28 -20 TABLET(10 Se ybold 10 MG oral 00:00: 00:00 MG) BY - Tablet 00 :00 MOUTH Externa tablet EVERY l NIGHT Amlodipine 2021-05 Yes [id number] 2.5mg Take 1 Erika Besylate 0-26 tablet Seybold 2.5 MG oral 00:00: (2.5 mg - Tablet 00 total) by Externa mouth l daily Amlodipine 2021-05 Yes [id number] 2.5mg Take 1 Erika Besylate 0-26 tablet Seybold 2.5 MG oral 00:00: (2.5 mg - Tablet 00 total) by Externa mouth l daily Amlodipine 2021-05 Yes [id number] 2.5mg Take 1 Eriak Besylate 0-26 tablet Seybold 2.5 MG oral 00:00: (2.5 mg - Tablet 00 total) by Externa mouth l daily Amlodipine 2021-05 Yes [id number] 2.5mg Take 1 Erika Besylate 0-26 tablet Seybold 2.5 MG oral 00:00: (2.5 mg - Tablet 00 total) by Externa mouth l daily Amlodipine 2021-05 Yes [id number] 2.5mg Take 1 Erika Besylate 0-26 tablet Seybold 2.5 MG oral 00:00: (2.5 mg - Tablet 00 total) by Externa mouth l daily Calcium 600 Yes [id number] 1200mg Take 1,200 Erika MG oral 9-30 mg by Seybold Tablet 00:00: mouth - 00 daily Externa l Calcium 600 0 Yes [id number] 1200mg Take 1,200 Erika MG oral 9-30 mg by Seybold Tablet 00:00: mouth - 00 daily Externa l Calcium 600 0 Yes [id number] 1200mg Take 1,200 Erika MG oral 9-30 mg by Seybold Tablet 00:00: mouth - 00 daily Externa l Calcium 600 0 Yes [id number] 1200mg Take 1,200 Erika MG oral 9-30 mg by Seybold Tablet 00:00: mouth - 00 daily Externa l Vitamin D, 0 Yes [id number] 34910L Take 1 Erika Ergocalcife 9-30 capsule Seybo ld rol, 1.25 00:00: (50,000 - MG (53919 00 units Externa UT) oral total) by l Capsule mouth once a week Calcium 600 0 Yes [id number] 1200mg Take 1,200 Erika MG oral 9-30 mg by Seybold Tablet 00:00: mouth - 00 daily Externa l Vitamin D, 2021-0 2023- No [id number] 21986W Take 1 Erika Ergocalcife 9-30 06-20 capsule Seyb old rol, 1.25 00:00: 00:00 (50,000 - MG (59432 00 :00 units Externa UT) oral total) by l Capsule mouth once a week Pantoprazol Yes [id number] 20mg Take 1 Erika e Sodium 20 9-29 tablet (20 Se ybold MG oral 00:00: mg total) - Tablet 00 by mouth Externa Delayed daily l Response Montelukast Yes [id number] 10mg Take 1 Erika (Singulair) 02-03 tablet (10 Se ybold 10 MG oral 00:00: mg total) - Tablet 00 by mouth Externa tablet nightly l Trazodone 2022- No 50mg 1 tablet Wes sey HCl 50 MG 02-03 (50 mg Seybold oral Tablet 00:00: 00:00 total) - 00 :00 Externa l Trazodone 2021- No [id number] 50mg Take 1 Erika HCl 50 MG 02-03 tablet (50 Sey bold oral Tablet 00:00: 00:00 mg total) - 00 :00 by mouth Externa nightly l Amlodipine Yes [id number] TAKE 1 K elsey Besylate 01-25 TABLET(2.5 Seybo ld 2.5 MG oral 00:00: MG) BY - Tablet 00 MOUTH Externa DAILY l Doxepin HCl 2021- No [id number] 1{tbl} QD Take 1 Erika 3 MG oral 01-20 tablet by Seyb old Tablet 00:00: 00:00 mouth - 00 :00 nightly as Externa needed l predniSONE Yes [id number] 10mg Take 1 K elsey (DELTASONE) 8-05 tablet (10 Se ybold 10 MG oral 00:00: mg total) - tablet 00 by mouth Externa daily l FLUTICASONE Yes [id number] 50ug Use 1 K elsey PROPIONATE, 8-05 spray (50 Sey bold NASAL, 50 00:00: mcg total) - MCG/ACT 00 in each Externa nasal nostril l Suspension daily predniSONE Yes [id number] 10mg Take 1 K elsey (DELTASONE) 8-05 tablet (10 Se ybold 10 MG oral 00:00: mg total) - tablet 00 by mouth Externa daily l FLUTICASONE Yes [id number] 50ug Use 1 K elsey PROPIONATE, 8-05 spray (50 Sey bold NASAL, 50 00:00: mcg total) - MCG/ACT 00 in each Externa nasal nostril l Suspension daily predniSONE 0 2022- No [id number] 10mg Take 1 Erika (DELTASONE) 12-10-20 tablet (10 S eybold 10 MG oral 00:00: 00:00 mg total) - tablet 00 :00 by mouth Externa daily l FLUTICASONE 0 3- No [id number] 50ug Use 1 Erika PROPIONATE, 12-10-20 spray (50 Se ybold NASAL, 50 00:00: 00:00 mcg total) - MCG/ACT 00 :00 in each Externa nasal nostril l Suspension daily Levothyroxi 2021-0 Yes [id number] 25ug Take 1 Erika ne Sodium 7-20 tablet (25 Seyb old 25 MCG oral 00:00: mcg total) - Tablet 00 by mouth Externa daily l Lisinopril 0 Yes [id number] 20mg Take 1 K elsey 20 MG oral 7-20 tablet (20 Sey bold Tablet 00:00: mg total) - 00 by mouth Externa daily l Levothyroxi 2021-0 Yes [id number] 25ug Take 1 Erika ne Sodium 7-20 tablet (25 Seyb old 25 MCG oral 00:00: mcg total) - Tablet 00 by mouth Externa daily l Lisinopril 2021-0 Yes [id number] 20mg Take 1 K elsey 20 MG oral 7-20 tablet (20 Sey bold Tablet 00:00: mg total) - 00 by mouth Externa daily l Levothyroxi 2021-0 Yes [id number] 25ug Take 1 Erika ne Sodium 7-20 tablet (25 Seyb old 25 MCG oral 00:00: mcg total) - Tablet 00 by mouth Externa daily l Lisinopril 2021-0 Yes [id number] 20mg Take 1 K elsey 20 MG oral 7-20 tablet (20 Sey bold Tablet 00:00: mg total) - 00 by mouth Externa daily l Lisinopril 2021-0 Yes [id number] 20mg Take 1 K elsey 20 MG oral 7-20 tablet (20 Sey bold Tablet 00:00: mg total) - 00 by mouth Externa daily l Levothyroxi 2021-0 Yes [id number] 25ug Take 1 Erika ne Sodium 7-20 tablet (25 Seyb old 25 MCG oral 00:00: mcg total) - Tablet 00 by mouth Externa daily l Lisinopril 2021-0 Yes [id number] 20mg Take 1 K elsey 20 MG oral 7-20 tablet (20 Sey bold Tablet 00:00: mg total) - 00 by mouth Externa daily l Levothyroxi 2021-0 Yes [id number] 25ug Take 1 Erika ne Sodium 7-20 tablet (25 Seyb old 25 MCG oral 00:00: mcg total) - Tablet 00 by mouth Externa daily l Lisinopril 0 Yes [id number] 20mg Take 1 K elsey 20 MG oral 7-20 tablet (20 Sey bold Tablet 00:00: mg total) - 00 by mouth Externa daily l Levothyroxi 0 2022- No [id number] 25ug Take 1 Erika ne Sodium 7-20 08-10 tablet (25 Sey bold 25 MCG oral 00:00: 00:00 mcg total) - Tablet 00 :00 by mouth Externa daily l traMADol 50 2020-0 Yes 50mg Take 50 mg Univers mg tablet 2-26 by mouth ity of 19:52: every 6 [place] [address] (six) Medical hours as Branch needed. traMADol 50 2020-0 Yes 50mg Take 50 mg Univers mg tablet 2-26 by mouth ity of 19:52: every 6 [place] [address] (six) Medical hours as Branch needed. traMADol 50 2020-0 Yes 50mg Take 50 mg Univers mg tablet 2-26 by mouth ity of 13:52: every 6 [place] [address] (six) Medical hours as Branch needed. traMADol 50 2020-0 Yes 50mg Take 50 mg Univers mg tablet 2-26 by mouth ity of 13:52: every 6 [place] [address] (six) Medical hours as Branch needed. Lisinopril [...] Time Observation Value Comments Source Systolic blood 2022-12-15 16:02:00 155 mm[Hg] Erika Womackold - pressure External Diastolic blood 2022-12-15 16:02:00 73 mm[Hg] Ciarra Womackold - pressure External Heart rate 2022-12-15 16:02:00 78 /min Erika landaverde - External Body temperature 2022-12-15 16:02:00 36.61 Adrianne Chayo ey Seybold - External Respiratory rate 2022-12-15 16:02:00 15 /min Chayo Arredondo - External Body height 2022-12-15 16:02:00 160 cm Erika landaverde - External Body weight 2022-12-15 16:02:00 68.493 kg Erika landaverde - External BMI 2022-12-15 16:02:00 26.75 kg/m2 Erika landaverde - External Oxygen saturation in 2022-12-15 16:02:00 99 /min Erika Arredondo - Arterial blood by External Pulse oximetry Systolic blood 2022-10-31 13:41:00 158 mm[Hg] Erika Arredondo - pressure External Diastolic blood 2022-10-31 13:41:00 72 mm[Hg] Ciarra wallace Seybold - pressure External Heart rate 2022-10-31 13:41:00 98 /min Erika landaverde - External Body temperature 2022-10-31 13:41:00 36.67 Adrianne Chayo ey Seybold - External Respiratory rate 2022-10-31 13:41:00 14 /min Chayo ey Seybold - External Body height 2022-10-31 13:41:00 160 cm Erika Ledezma eybold - External Body weight 2022-10-31 13:41:00 68.493 kg Erika Ledezma eybold - External BMI 2022-10-31 13:41:00 26.75 kg/m2 Erika S eybold - External Systolic blood 2022-10-25 18:28:00 164 mm[Hg] Erika Seybold - pressure External Diastolic blood 2022-10-25 18:28:00 68 mm[Hg] Wesse y Seybold - pressure External Heart rate 2022-10-25 18:28:00 91 /min Erika Ledezma eybold - External Body temperature 2022-10-25 18:28:00 36.83 Adrianne Chayo ey Seybold - External Respiratory rate 2022-10-25 18:28:00 14 /min Chayo lewis Seybold - External Body height 2022-10-25 18:28:00 160 cm Erika Ledezma eybold - External Body weight 2022-10-25 18:28:00 68.04 kg Erika Ledezma eybold - External BMI 2022-10-25 18:28:00 26.57 kg/m2 Erika Ledezma eybold - External Systolic blood 2022-09-27 19:42:00 184 mm[Hg] Erika Seybold - pressure External Diastolic blood 2022-09-27 19:42:00 90 mm[Hg] Ciarra y Seybold - pressure External Heart rate 2022-09-27 19:42:00 101 /min Erika Ledezma eybold - External Body temperature 2022-09-27 19:42:00 36.72 Adrianne Chayo ey Seybold - External Respiratory rate 2022-09-27 19:42:00 16 /min Chayo lewis Seybold - External Body height 2022-09-27 19:42:00 160 cm Erika Ledezma eybold - External Body weight 2022-09-27 19:42:00 68.13 kg Erika Ledezma eybold - External BMI 2022-09-27 19:42:00 26.61 kg/m2 Erika S eybold - External Oxygen saturation in 2022-09-27 19:42:00 95 /min Erika Del Rioybmiguelina - Arterial blood by External Pulse oximetry Systolic blood 2022-02-03 18:02:00 152 mm[Hg] Erika Del Rioybold - pressure External Diastolic blood 2022-02-03 18:02:00 76 mm[Hg] Ciarra y Seybold - pressure External Heart rate 2022-02-03 18:02:00 67 /min Erika Ledezma eybold - External Body temperature 2022-02-03 18:02:00 36.33 Adrianne Chayo lewis Seybold - External Respiratory rate 2022-02-03 18:02:00 17 /min Chayo lewis Seybold - External Body height 2022-02-03 18:02:00 160 cm Erika lewisbold - External Body weight 2022-02-03 18:02:00 71.215 kg Erika lewisbold - External BMI 2022-02-03 18:02:00 27.81 kg/m2 Erika lewisbold - External Oxygen saturation in 2022-02-03 18:02:00 99 /min Erika Del Riorolandomiguelina - Arterial blood by External Pulse oximetry height 2021-06-18 13:00:00 63 [in_i] [facility] weight 2021-06-18 13:00:00 159 [lb_av] [facility] temperature 2021-06-18 13:00:00 97.0 [degF] [facility] bmi 2021-06-18 13:00:00 28.16 kg/m2 [facility] oximetry 2021-06-18 13:00:00 96 % [facility] respiratory rate 2021-06-18 13:00:00 19 /min [facility] blood pressure 2021-06-18 13:00:00 175 mm[Hg] [facility] - systolic [facility] blood pressure 2021-06-18 13:00:00 81 mm[Hg] [facility] height 2021-06-04 13:00:00 63 [in_i] [facility] weight 2021-06-04 13:00:00 161 [lb_av] [facility] temperature 2021-06-04 13:00:00 96.9 [degF] [facility] bmi 2021-06-04 13:00:00 28.52 kg/m2 [facility] oximetry 2021-06-04 13:00:00 98 % [facility] respiratory rate 2021-06-04 13:00:00 16 /min [facility] blood pressure 2021-06-04 13:00:00 160 mm[Hg] [facility] systolic [facility] blood pressure 2021-06-04 13:00:00 86 mm[Hg] [facility] diastolic [facility] Systolic blood 2021-01-30 18:55:00 193 mm[Hg] [facility] Diastolic blood 2021-01-30 18:55:00 86 mm[Hg] [facility] Heart rate 2021-01-30 18:55:00 100 /min [facility] Body temperature 2021-01-30 18:55:00 36.94 [facility] 2021-01-30 18:55:00 18 /min [facility] Body weight 2021-01-30 18:55:00 71.668 kg [facility] BMI 2021-01-30 18:55:00 27.99 kg/m2 [facility] Oxygen saturation in 2021-01-30 18:55:00 95 /min [facility] Arterial blood by [facility] Pulse oximetry Branch Systolic blood 2019-07-03 19:48:00 171 mm[Hg] [facility] Diastolic blood 2019-07-03 19:48:00 75 mm[Hg] [facility] Heart rate 2019-07-03 19:48:00 92 /min [facility] Body height 2019-07-03 19:48:00 160 cm [facility] Body weight 2019-07-03 19:48:00 74.844 kg [facility] BMI 2019-07-03 19:48:00 29.23 kg/m2 [facility] Procedures Procedure Date / Time Performing Clinician Source Performed [facility] 2022-10-31 14:27:08 Chong Rocha Sejulian ld - External AUTHORIZATION FOR 2021-08-04 05:01:00 Doctor Unassigned, No [facility] RELEASE OF PHI Name Medical Branch XR FOOT 3+ VW LEFT 2021-01-30 19:15:36 Pily Nunez [facility] Encounters Start End Encounter Admission Attending Care Care Encounter Source Date/Time Date/Time Type Type Clinicians Facility Department ID 2021-12-06 Outpatient Darby, STLMLC STLMLC [id number] Common 10:09:01 Zachary [facility] 2021-10-14 Outpatient Darby, STLMLC STLMLC [id number] Common 11:26:02 Zachary [facility] 2021-08-31 Outpatient Darby, STLMLC STLMLC [id number] Common 10:49:02 Zachary [facility] 2021-07-05 Outpatient Darby, STLMLC STLMLC [id number] Common 11:33:02 Zachary [facility] 2021-06-03 Outpatient Darby, STLMLC STLMLC [id number] Common 13:12:02 Zachary [facility] 2021-06-02 Outpatient Darby, STLMLC STLMLC [id number] Common 13:39:59 Zachary 66922 [facility] 2021-06-02 Outpatient Darby, STLMLC STLMLC [id number] Common 12:59:06 Zachray 75598 [facility] 2021-03-09 Emergency [facility] [id number] Univers 01:22:00 ity [facility] 2023-01-12 2023-01-12 Outpatient ERIKA ROCHA [id number] Erika 11:00:00 11:00:00 CHONG Seybol d 2023-01-12 2023-01-12 Outpatient HUNDL, ERIKA MANZANO [id number] Erika 08:00:00 08:00:00 CHONG Seybol d 2023-01-10 2023-01-10 Outpatient SORIN ERIKA MANZANO [id number] Erika 00:00:00 00:00:00 NOHEMI Seybol d 2022-12-15 2022-12-15 Outpatient LAB90 ERIKA MANZANO [id number] Erika 11:45:00 11:45:00 Seybol d 2022-12-15 2022-12-15 Outpatient AJ, ERIKA MANZANO [id number] Erika 11:00:00 11:00:00 CHONG Seybol d 2022-12-15 2022-12-15 Outpatient ERIKA ROWELL [id number] Erika 00:00:00 00:00:00 NOHEMI Seybol d 2022-11-29 2022-11-29 Outpatient HUNDL, ERIKA MANZANO [id number] Erika 08:30:00 08:30:00 CHONG Seybol d 2022-11-09 2022-11-09 Outpatient AJ, ERIKA MANZANO [id number] Erika 00:00:00 00:00:00 CHONG Seybol d 2022-10-31 2022-10-31 Outpatient LAB90 ERIKA MANZANO [id number] Erika 10:15:00 10:15:00 Seybol d 2022-10-31 2022-10-31 Outpatient AJ, ERIKA MANZANO [id number] Erika 09:00:00 09:00:00 CHONG Seybol d 2022-10-27 2022-10-27 Outpatient ERIKA ROCHA [id number] Erika 00:00:00 00:00:00 CHONG Seybol d 2022-10-25 2022-10-25 Outpatient ERIKA ROCHA [id number] Erika 13:30:00 13:30:00 CHONG Seybol d 2022-10-07 2022-10-07 Outpatient ERIKA ROCHA [id number] Erika 10:00:00 10:00:00 CHONG Seybol d 2022-10-05 2022-10-05 Outpatient HUNDL, ERIKA MANZANO [id number] Erika 00:00:00 00:00:00 CHONG Seybol d 2022-09-27 2022-09-27 Outpatient HUNDL, ERIKA MANZANO [id number] Erika 15:00:00 15:00:00 CHONG Seybol d 2022-09-01 2022-09-01 Outpatient ERIKA ROWELL [id number] Erika 00:00:00 00:00:00 NOHEMI Seybol d 2022-07-30 2022-07-30 Outpatient HUNDL, ERIKA MANZANO [id number] Erika 00:00:00 00:00:00 CHONG Seybol d 2022-06-04 2022-06-04 Outpatient HUNDL, ERIKA MANZANO [id number] Erika 00:00:00 00:00:00 CHONG Seybol d 2022-05-02 2022-05-02 Outpatient HUNDL, ERIKA MANZANO [id number] Erika 00:00:00 00:00:00 CHONG Seybol d 2022-04-04 2022-04-04 Outpatient ERIKA ROWELL [id number] Erika 00:00:00 00:00:00 NOHEMI Seybol d 2022-02-10 2022-02-10 Outpatient TARYNLERIKA [id number] Erika 00:00:00 00:00:00 CHONG Seybol d 2022-02-04 2022-02-04 Outpatient YUE, JOHN PAUL MANZANO [id number] Erika 10:00:00 10:00:00 Seybol d 2022-02-04 2022-02-04 Outpatient HUNDL, ERIKA MANZANO [id number] Erika 00:00:00 00:00:00 CHONG Seybol d 2022-02-03 2022-02-03 Outpatient LAB90 ERIKA MANZANO [id number] Erika 14:00:00 14:00:00 Seybol d 2022-02-03 2022-02-03 Outpatient ERIKA ROCHA [id number] Erika 13:00:00 13:00:00 CHONG Seybol d 2022-01-20 2022-01-20 Outpatient AJ ERIKA MANZANO [id number] Erika 08:30:00 08:30:00 CHONG Seybol d 2022-01-19 2022-01-19 Outpatient TARYNTone ERIKA MANZANO [id number] Erika 11:00:00 11:00:00 CHONG Seybol d 2021-12-22 2021-12-22 Outpatient LAB90 ERIKA MANZANO [id number] Erika 11:45:00 11:45:00 Seybol d 2021-12-22 2021-12-22 Office John aPul Rowell [id number] Erika 11:00:00 11:30:00 Visit Nohemi Layne [id number] Se ybold Somogyi [id number] 2021-12-10 2021-12-10 Office John Paul Slater [id number] Erika 10:45:00 11:15:00 Visit Alan Layne [id number] Se ybold [id number] 2021-12-09 2021-12-09 Outpatient ERIKA ROWELL [id number] Erika 00:00:00 00:00:00 NOHEMI Seybol d 2021-12-06 2021-12-06 (TEL) [facility] [id number] Co mmon 00:00:00 00:00:00 [facility] 2021-12-01 2021-12-01 Outpatient ERIKA ROWELL [id number] Erika 00:00:00 00:00:00 NOHEMI Seybol d 2021-11-24 2021-11-24 Outpatient LAB90 ERIKA MANZANO [id number] Erika 11:25:00 11:25:00 Seybol d 2021-11-24 2021-11-24 Office John Paul Rowell [id number] Erika 10:30:00 11:00:00 Visit Nohemi Layne [id number] Se aura Hinojosayi [id number] 2021-11-18 2021-11-18 Outpatient LAB90 ERIKA MANZANO [id number] Erika 11:30:00 11:30:00 Reynaldo garcia 2021-11-18 2021-11-18 Office John Paul Rowell [id number] Erika 10:45:00 11:15:00 Visit Nohemi Layne [id number] Se aura Newton [id number] 2021-11-16 2021-11-16 Outpatient ERIKA ROWELL [id number] Erika 10:00:00 10:00:00 NOHEMI Del Riohenri garcia 2021-11-11 2021-11-11 Outpatient ERIKA ROWELL [id number] Erika 13:45:00 13:45:00 NOHEMI Jacobs jose 2021-08-31 2021-08-31 (TEL) STLMLC STLMLC [id number] Co mmon 00:00:00 00:00:00 [facility] 2021-08-04 2021-08-04 Orders Doctor SOUMYA [id number] [place] [address] 00:00:00 00:00:00 Only Unassigned, PATRICIA [id number] ity of Happy [facility] [id number] Servando as [id number] [address] 2021-06-22 2021-06-22 (TEL) STLMLC STLMLC [id number] Co mmon 00:00:00 00:00:00 Spirit [facility] 2021-06-18 2021-06-18 OFFICE STLMLC STLMLC [id number] Co mmon 00:00:00 00:00:00 VISIT [facility] LEVEL 4 [facility] 2021-06-17 2021-06-17 (TEL) STLMLC STLMLC [id number] Co mmon 00:00:00 00:00:00 [facility] 2021-06-04 2021-06-04 OFFICE STLMLC STLMLC [id number] Co mmon 00:00:00 00:00:00 VISIT EST Spir it PT LEVEL 3 - [facility] 2021-05-11 2021-05-11 (TEL) STLMLC STLMLC [id number] Co mmon 00:00:00 00:00:00 [facility] 2021-01-30 2021-01-30 Emergency [facility] [id number] Univers 13:55:00 15:08:00 Pily Carmel [id number] i [facility] [place] 4.2.7.2.686 [facility] [id number] [address] 2020-12-29 2020-12-29 (TEL) STLMLC STLMLC [id number] Co mmon 00:00:00 00:00:00 [facility] 2020-11-12 2020-11-12 Outpatient STLMLC STLMLC [id number] Common 00:00:00 00:00:00 [facility] 2020-11-12 2020-11-12 Outpatient STLMLC STLMLC [id number] Common 00:00:00 00:00:00 [facility] 2020-09-08 2020-09-08 Outpatient STLMLC STLMLC [id number] Common 00:00:00 00:00:00 [facility] 2019-07-03 2019-07-03 [email or web address] [id number] Univers 13:28:46 14:10:35 Visit [facility] [id number] it y of Surgical [id number] [facility] [id number] [place] [address] 2019-07-03 2019-07-03 [facility] [id number] Univers 13:45:00 13:45:00 STEPHANIE francisco [facility] 2019-06-26 2019-06-26 Outpatient Hiram-Sabrina P [facility] [address] [facility] [facility] 07:22:00 07:22:00 _A_AH [id number] [facility] Pract[facility] e 2019-06-26 2019-06-26 Outpatient Hiram-Colleeno VFP VFP [id number] [facility] 07:22:00 07:22:00 _A_AH [id number] Family Practic e 2019-06-26 2019-06-26 Outpatient Hiram-Colleeno VFP VFP [id number] [facility] 07:22:00 07:22:00 _A_ [id number] Family Practic e Results Test Description Test Time Test Comments Results Result Comments Source [facility] 2022-10-31 14:28:30 Test Item Value Reference Range Interpretation Comme nts [facility] left side (test code 1.31 See_Comment [Automated message] The system = 28808-7H) which generated this result transmitted ref erence range: 1.40 - 0.90 NA. The re ference range was not used to interpr et this result as normal/abnormal . [facility] (test 1.34 See_Comment P resentation Factors: code = 23752-7M) DiabetesExe rcise Modality: At RestNormal - 1. 40 - 1.00Borderline - 0.99 - 0.90Mild - 0.89 - 0.60Moderate - 0.59 - 0.30Severe - 0.29 - 0.00 [Au tomated message] The system which ge nerated this result transmitted ref erence range: 1.40 - 0.90 NA. The re ference range was not used to interpr et this result as normal/abnormal . Erika Arredondo - External
[2023-01-11 17:56] LABS: Absolute Lymphocytes (CBC) 2.2 K/uL (0.7-4.9); Hematocrit 25.5 % (36.0-45.0); Lymphocytes % 24.9 % (15.3-44.8); MCV 103.4 fL (80-100); MPV 9.3 fL (7.6-11.3); Platelets 175 thou/uL (152-406); RBC Red Blood Cell Count 2.46 M/uL (3.86-4.86)
[2023-01-11 18:03] LABS: Protime INR 1.14
[2023-01-11] MEDS ORDERED: NA CHLORIDE 0.9% 500 ML ONE (18:08)
[2023-01-11 18:24] LABS: Albumin 2.5 g/dL (3.4-5.0); Bilirubin Direct 0.5 mg/dL (0-0.2); Bilirubin Indirect, Calculated 0.5 mg/dL (0.2-0.8); Potassium 3.5 mEq/L (3.5-5.1); Protein, Total 7.2 g/dL (6.4-8.2); Thyroid Stimulating Hormone 0.076 uIU/mL (0.358-3.740); Troponin High Sensitivity 16.7 pg/mL (<58.9)
[2023-01-11 18:27] LABS: SARS-CoV-2 Antigen Rapid Res Negative (Negative)
[2023-01-11 18:33] LABS: Specific Gravity 1.027 (1.005-1.030); Urine Bacteria <20 /HPF (<20); Urine Bilirubin NEGATIVE (Negative); Urine Blood Negative (Negative); Urine Clarity Clear (Clear); Urine Color Yellow (Yellow); Urine Glucose NEGATIVE (Negative); Urine Mucus Slight /HPF (None Seen); Urine Protein 1+ (Negative); Urine RBC <5 /HPF (None Seen); Urine Urobilinogen 1+ (Normal); Urine pH 5.5 (5.0-7.0)
--- NOTE | 2023-01-11 19:03 | EDPHYS ---
Physician Documentation [facility] Name: Evie Gill Age: 77 yrs Sex: Female : 1945 Arrival Date: 01/11/2023 Time: 15:25 Bed 15 Private MD: ED Physician Ralph Paulson HPI: 01/11 16:07 This 77 yrs old Female presents to ER via Wheelchair with complaints of rn Weakness. 16:07 The patient presents to the emergency department with weakness of the entire body, rn generalized weakness. Onset: The symptoms/episode began/occurred 2 week(s) ago. Associated signs and symptoms: Pertinent negatives: fever, neck stiffness, seizure, syncope, double vision, visual field changes, loss of vision. Severity of symptoms: At their worst the symptoms were moderate in the emergency department the symptoms are unchanged. Current symptoms:. The patient has experienced similar episodes in the past. The patient has not recently seen a physician. Patient reports generalized weakness and malaise for at least 2 weeks. Reports got worse when started her levothyroxine. Denies any fever. Reports dark brown stool but no blood in stool or hematemesis. Patient has cirrhosis. Denies chest pain. Denies abdominal pain.. Historical: - Allergies: 16:00 Bactrim; ko1 16:00 Codeine; ko1 16:00 Flagyl; ko1 16:00 Iodine; ko1 16:00 Levaquin; ko1 16:00 PAPAYA; ko1 - PMHx: 16:00 Bronchitis; Emphysema; Diabetes - NIDDM; COPD; Cirrhosis; ko1 - Immunization history:: Adult Immunizations unknown. - Social history:: Smoking status: Patient denies any tobacco usage or history of. Patient uses alcohol, on a daily basis. - Family history:: not pertinent. - Hospitalizations: : No recent hospitalization is reported. ROS: 16:08 Constitutional: Negative for fever, chills, and weight loss, Eyes: Negative for injury, rn pain, redness, and discharge, Neck: Negative for injury, pain, and swelling, Cardiovascular: Negative for chest pain, palpitations, and edema, Respiratory: Negative for shortness of breath, cough, wheezing, and pleuritic chest pain, Abdomen/GI: Negative for abdominal pain, nausea, vomiting, diarrhea, and constipation, Back: Negative for injury and pain, MS/Extremity: Negative for injury and deformity, Skin: Negative for injury, rash, and discoloration, Neuro: Positive for generalized weakness Exam: 16:08 Constitutional: This is a well developed, well nourished patient who is awake, alert, rn and in no acute distress. Head/Face: Normocephalic, atraumatic. ENT: Dry mucous membranes, no stridor Cardiovascular: Tachycardic, regular. No pulse deficits. Respiratory: Speaking full sentences, unlabored. No increased work of breathing, no retractions or nasal flaring. Abdomen/GI: Soft, nontender. Skin: Warm, dry MS/ Extremity: Pulses equal, no cyanosis. Equal circumference. Neuro: Awake and alert, GCS 15, oriented to person, place, time, and situation. Cranial nerves II-XII grossly intact. Motor strength 4/5 in all extremities. Sensory grossly intact. 19:46 ECG was reviewed by the Attending Physician. rn Vital Signs: 15:58 BP 176 / 78; Pulse 107; Resp 16; Temp 98.2; Pulse Ox 96% ; ko1 19:31 BP 171 / 67; Pulse 96; Resp 18; Pulse Ox 97% on R/A; me1 20:49 BP 168 / 80; Pulse 96; Resp 19; Pulse Ox 95% on R/A; me1 21:27 BP 153 / 68; Pulse 100; Resp 17; Pulse Ox 94% on R/A; me1 MDM: 15:46 Patient medically screened. rn 19:00 Data reviewed: vital signs, nurses notes, lab test result(s), EKG, and as a result, I rn will admit patient. Consideration of Admission/Observation Patient was admitted/placed on observation. Escalation of care including admission/observation considered. Management of patient was discussed with the following: Hospitalist: . 19:01 Counseling: I had a detailed discussion with the patient and/or guardian regarding the rn historical points, exam findings, and any diagnostic results supporting the discharge/admit diagnosis, lab results, radiology results, the need for further work-up and treatment in the hospital. ED course: Patient with almost two-point drop in hemoglobin since last visit, no melena but reports dark stool and symptoms present for 2 weeks, might be slow bleed given cirrhosis. No hematemesis or variceal bleeding. Stable vital signs. Has seen Dr. Bourgeois before with scope, will admit to hospitalist service with Dr. Bourgeois consult. 01/11 16:06 Order name: CBC with Diff; Complete Time: 18:38 rn 01/11 16:06 Order name: Basic Metabolic Panel; Complete Time: 18:38 rn 01/11 16:06 Order name: Protime (+inr); Complete Time: 18:38 rn 01/11 16:06 Order name: Ptt, Activated; Complete Time: 18:38 rn 01/11 16:06 Order name: LFT's; Complete Time: 18:38 rn 01/11 16:06 Order name: Urinalysis w/ reflexes; Complete Time: 18:38 rn 01/11 16:06 Order name: TSH; Complete Time: 18:38 rn 01/11 16:06 Order name: T4 Free; Complete Time: 18:38 rn 01/11 16:06 Order name: BNP; Complete Time: 18:38 rn 01/11 16:06 Order name: Troponin High Sensitivity; Complete Time: 18:38 rn 01/11 16:06 Order name: SARS RAPID; Complete Time: 18:38 rn 01/11 16:08 Order name: ETOH Level rn 01/11 16:06 Order name: EKG; Complete Time: 17:04 rn 01/11 20:42 Order name: CONS Physician Consult EDCO 01/11 16:06 Order name: IV Start; Complete Time: 17:48 rn 01/11 16:06 Order name: EKG - Nurse/Tech; Complete Time: 18:18 rn EC:46 Rate is 100 beats/min. Rhythm is regular. QRS [place] is Normal. NM interval is normal. rn QRS interval is normal. QT interval is normal. No Q waves. T waves are Normal. No ST changes noted. Clinical impression: NSR w/ Non-specific ST/T Changes. Interpreted by me. Reviewed by me. Administered Medications: 17:58 Drug: NS 0.9% IV 500 ml Route: IV; Rate: bolus; Site: right antecubital; iw 19:55 Drug: Pantoprazole IVP 40 mg Route: IVP; Site: left antecubital; me1 21:23 Follow up: Response: No adverse reaction me1 20:06 Drug: Octreotide IV 50 mcg Route: IV; Rate: calculated rate; Site: right antecubital; me1 21:23 Follow up: Response: No adverse reaction me1 20:07 Drug: Octreotide Infusion (50 mcg/hr) - (Octreotide IV 500 mcg, NS 0.9% IV 500 ml) me1 Route: IV; Rate: 50 ml/hr; Site: right antecubital; 21:23 Follow up: Response: No adverse reaction me1 20:43 Drug: Pantoprazole IV 8 mg/hr Route: IV; Rate: 25 ml/hr; Site: left antecubital; me1 21:23 Follow up: Response: No adverse reaction me1 Disposition Summary: 01/11/23 19:02 Hospitalization Ordered Hospitalization Status: Inpatient Admission rn Provider: Yvon Julian rn Location: Telemetry/MedSurg (Inpatient) rn Condition: Stable rn Problem: an ongoing problem rn Symptoms: are unchanged rn Bed/Room Type: Standard rn Room Assignment: 404(01/11/23 21:08) eb1 Diagnosis - Unspecified cirrhosis of liver rn - Anemia, unspecified rn - Muscle weakness (generalized) rn Forms: - Medication Reconciliation Form rn - SBAR form rn - Leadership Thank You Letter rn Signatures: Dispatcher [employer] Hayde Gallegos RN RN Ralph Paulson MD MD rn Basinger, Emily, RN RN eb1 Serena Monzon RN RN ko1 Teresa Webster RN RN me1 Corrections: (The following items were deleted from the chart) 21:08 19:02 rn eb1
--- NOTE | 2023-01-11 19:03 | ER ---
Nurse's Notes [facility] Name: Evie Gill Age: 77 yrs Sex: Female : 1945 Arrival Date: 01/11/2023 Time: 15:25 Bed 15 Private MD: Diagnosis: Unspecified cirrhosis of liver;Anemia, unspecified;Muscle weakness (generalized) Presentation: 01/11 15:58 Chief complaint: Patient states: feeling generalized weakness and dont feel well for 2 ko1 weeks since she started taking thyroid meds. Coronavirus screen: At this time, the client does not indicate any symptoms associated with coronavirus-19. Ebola Screen: No symptoms or risks identified at this time. No acute neurological deficit is noted. Pre-hospital glucose is not applicable to this patient. Initial Sepsis Screen: Does the patient meet any 2 criteria? No. Patient's initial sepsis screen is negative. Does the patient have a suspected source of infection? No. Patient's initial sepsis screen is negative. Risk Assessment: Do you want to hurt yourself or someone else? Patient reports no desire to harm self or others. Onset of symptoms is unknown. 15:58 Method Of Arrival: Wheelchair ko1 15:58 Acuity: WON 3 ko1 Triage Assessment: 16:00 The onset of the patients symptoms was more than six hours ago. General: Appears ko1 distressed, uncomfortable, Behavior is cooperative, appropriate for age. Pain: Denies pain. Neuro: Reports weakness in generalized. 20:46 The onset of the patients symptoms was more than six hours ago. me1 Stroke Activation: Symptom onset > 6 hours Physician: Stroke Attending; Name: ; Notified At: ; Arrived At: Physician: Chief Stroke Resident; Name: ; Notified At: ; Arrived At: Physician: Stroke Resident; Name: ; Notified At: ; Arrived At: Physician: ED Attending; Name: ; Notified At: ; Arrived At: Physician: ED Resident; Name: ; Notified At: ; Arrived At: Historical: - Allergies: 16:00 Bactrim; ko1 16:00 Codeine; ko1 16:00 Flagyl; ko1 16:00 Iodine; ko1 16:00 Levaquin; ko1 16:00 PAPAYA; ko1 - PMHx: 16:00 Bronchitis; Emphysema; Diabetes - NIDDM; COPD; Cirrhosis; ko1 - Immunization history:: Adult Immunizations unknown. - Social history:: Smoking status: Patient denies any tobacco usage or history of. Patient uses alcohol, on a daily basis. - Family history:: not pertinent. - Hospitalizations: : No recent hospitalization is reported. Screenin:43 [facility] ED Fall Risk Assessment (Adult) History of falling in the last 3 months, me1 including since admission No falls in past 3 months (0 pts) Confusion or Disorientation No (0 pts) Intoxicated or Sedated No (0 pts) Impaired Gait Yes (1 pt) Mobility Assist Device Used Yes (1 pt) Altered Elimination No (0 pt) Score/Fall Risk Level 0 - 2 = Low Risk. Abuse screen: Denies threats or abuse. Nutritional screening: No deficits noted. Tuberculosis screening: No symptoms or risk factors identified. Assessment: 20:43 General: Appears uncomfortable, well groomed, well developed, well nourished, Behavior me1 is calm, cooperative, appropriate for age, Reports fatigue for >3 days, for about 2 weeks since she started taking her thyroid medication again.. Pain: Denies pain. Neuro: Level of Consciousness is awake, alert, obeys commands, Oriented to person, place, time, situation, Appropriate for age. Cardiovascular: Capillary refill < 3 seconds Patient's skin is warm and dry. Respiratory: Airway is patent Respiratory effort is even, unlabored, Respiratory pattern is regular, symmetrical. GI: Patient currently denies bloody stool. Vital Signs: 15:58 BP 176 / 78; Pulse 107; Resp 16; Temp 98.2; Pulse Ox 96% ; ko1 19:31 BP 171 / 67; Pulse 96; Resp 18; Pulse Ox 97% on R/A; me1 20:49 BP 168 / 80; Pulse 96; Resp 19; Pulse Ox 95% on R/A; me1 21:27 BP 153 / 68; Pulse 100; Resp 17; Pulse Ox 94% on R/A; me1 ED Course: 15:38 Patient arrived in ED. im 15:45 Ralph Paulson MD is Attending Physician. rn 16:00 Triage completed. ko1 16:00 Arm band placed on right wrist. Patient placed in waiting room, Patient notified of ko1 wait time. 17:51 Hayde Sepulveda, MICHAEL is Primary Nurse. iw 19:02 Yvon Julian is Hospitalizing Provider. rn 20:43 Patient has correct armband on for positive identification. Bed in low position. Call me1 light in reach. Side rails up X2. Provided Education on: POC. Verbalized understanding.. 20:43 Inserted saline lock: 22 gauge in left antecubital area, using aseptic technique. me1 20:43 No provider procedures requiring assistance completed. Inserted saline lock: 22 gauge me1 in right antecubital area, using aseptic technique. Administered Medications: 17:58 Drug: NS 0.9% IV 500 ml Route: IV; Rate: bolus; Site: right antecubital; iw 19:55 Drug: Pantoprazole IVP 40 mg Route: IVP; Site: left antecubital; me1 21:23 Follow up: Response: No adverse reaction me1 20:06 Drug: Octreotide IV 50 mcg Route: IV; Rate: calculated rate; Site: right antecubital; me1 21:23 Follow up: Response: No adverse reaction me1 20:07 Drug: Octreotide Infusion (50 mcg/hr) - (Octreotide IV 500 mcg, NS 0.9% IV 500 ml) me1 Route: IV; Rate: 50 ml/hr; Site: right antecubital; 21:23 Follow up: Response: No adverse reaction me1 20:43 Drug: Pantoprazole IV 8 mg/hr Route: IV; Rate: 25 ml/hr; Site: left antecubital; me1 21:23 Follow up: Response: No adverse reaction me1 Medication: 20:43 VIS not applicable for this client. me1 Outcome: 19:02 Decision to Hospitalize by Provider. rn 22:02 Admitted to Med/surg accompanied by tech, via stretcher, room 404, Report called to me1 MICHAEL Wilson 22:02 Condition: stable 22:02 Instructed on the need for admit. 22:46 Patient left the ED. ga1 Signatures: Hayde Sepulveda RN RN Ralph Paulson MD MD rn Oliver, Kathy, RN RN ko1 Mendoza, Itzel im Eddleman, Michelle, RN RN ga1
[2023-01-11] MEDS ORDERED: NA CHLORIDE 0.9% 1,000 ML ONE (19:54)
[2023-01-11] MEDS ORDERED: PANTOPRAZOLE 40 MG INJ ONE ×2 (19:54→20:11)
[2023-01-11] MEDS ORDERED: OCTREOTIDE ACETATE 500 MCG/ML ONE (19:55)
--- NOTE | 2023-01-11 20:04 | P.HP ---
Certification for Inpatient Patient admitted to: Inpatient With expected LOS: <2 Midnights Patient will require the following post-hospital care: None Practitioner: I am a practitioner with admitting privileges, knowledge of patient current condition, hospital course, and medical plan of care. Services: Services provided to patient in accordance with Admission requirements found in Title 42 Section 412.3 of the Code of Federal Regulations Patient History Date of Service: 01/11/23 History of Present Illness: 77-year-old male with a past medical history of emphysema, bronchitis, diabetes, COPD, cirrhosis presents to the ER with weakness. He reports weakness started 2 weeks ago and is progressively getting worse. He denies fever, nausea vomiting diarrhea, chest pain, edema, dizziness. He reports recently started on Synthroid, and symptoms have progressively getting worse. She reports history of EtOH use with dark brown stools but no blood in stools or vomitus. She reports history of esophageal varices with esophageal banding with Dr. Brand. She denies abdominal pain. Plan to admit for cirrhosis, anemia, muscle muscle weakness, he reports he has seen Dr. Brand in the past for esophageal banding. ER course 15:58 BP 176 / 78; Pulse 107; Resp 16; Temp 98.2; Pulse Ox 96% laboratory evaluate WBCs within normal limit macrocytic anemia hemoglobin 8.4, hematocrit 25.3, no left shift, sodium potassium normal, acute on chronic kidney injury BUN 21 creatinine 1.09, transaminitis AST elevated at 69, elevated alk phos 195, UA within normal limits. CT of the abdomen pelvis September 01, 2022 : Stigmata of cirrhosis and prominent splenorenal varicosities, suggestive of portal hypertension Allergies papaya Allergy (Severe, Verified 06/24/16 13:14) Anaphylaxis sulfamethoxazole [From Bactrim] Allergy (Severe, Verified 06/24/16 13:14) Anaphylaxis codeine Allergy (Verified 06/24/16 13:14) Nausea/Vomiting levofloxacin [From Levaquin] Adverse Reaction (Verified 06/24/16 13:14) Nausea/Vomiting metronidazole [From Flagyl] Adverse Reaction (Verified 06/24/16 13:14) Nausea/Vomiting trimethoprim [From Bactrim] Adverse Reaction (Verified 06/24/16 13:14) Nausea/Vomiting IODINE; IODINE CONTAINING Adverse Reaction (Intermediate, Uncoded 06/24/16 13:14) Nausea/Vomiting Home Medications: Paroxetine HCl [Paxil] 20 mg PO DAILY 12/26/11 Glimepiride [Amaryl] 2 mg PO BID 12/22/14 Levothyroxine [Synthroid] 50 mcg PO [id number] 06/24/16 Lisinopril [Zestril] 20 mg PO DAILY 06/24/16 hydrOXYzine HCL [Atarax] 50 mg PO Q8H PRN 06/24/16 - Past Medical/Surgical History Diabetic: Yes - Social History Alcohol use: Yes CD- Drugs: No Caffeine use: Yes Physical Examination - Studies Laboratory Data (last 24 hrs) 01/11/23 01/11/23 01/11/23 17:40 17:40 17:40 WBC 8.90 Hgb 8.4 L Hct 25.5 L Plt Count 175 PT 12.5 INR 1.14 APTT 34.0 Sodium 142 Potassium 3.5 BUN 21 H Creatinine 1.09 H Glucose 108 H Total Bilirubin 1.0 AST 69 H ALT 34 Alkaline Phosphatase 195 H Assessment and Plan - Plan Plan to admit for cirrhosis, anemia, muscle muscle weakness, he reports he has seen Dr. Brand in the past for esophageal banding. ER course 15:58 BP 176 / 78; Pulse 107; Resp 16; Temp 98.2; Pulse Ox 96% laboratory evaluate WBCs within normal limit macrocytic anemia hemoglobin 8.4, hematocrit 25.3, no left shift, sodium potassium normal, acute on chronic kidney injury BUN 21 creatinine 1.09, transaminitis AST elevated at 69, elevated alk phos 195, UA within normal limits. CT of the abdomen pelvis September 01, 2022 : Stigmata of cirrhosis and prominent splenorenal varicosities, suggestive of portal hypertension - Advance Directives Does patient have a Living Will: No Does patient have a Durable POA for Healthcare: No
[2023-01-11] MEDS ORDERED: OCTREOTIDE ACETATE 100 MCG/ML ONE (20:11)
[2023-01-11] MEDS ORDERED: NA CHLORIDE 0.9% 250 ML ONE (20:11)
[2023-01-11] MEDS ORDERED: ONDANSETRON 4 MG/2 ML VIAL IV PRN (21:07)
[2023-01-11] MEDS ORDERED: FLUMAZENIL 0.1 MG/ML (5 mL VIAL) IV PRN (21:07)
[2023-01-11] MEDS: LORazepam 2 MG/ML VIAL IV SCH (21:07)
[2023-01-11] MEDS ORDERED: GLUCAGON 1 MG/VIAL IM PRN (21:08)
[2023-01-11] MEDS ORDERED: D50W 25 GM/50 ML SYRINGE IV PRN (21:08)
[2023-01-11] MEDS ORDERED: D10W 125 ML IV PRN (21:15)
--- NOTE | 2023-01-11 21:30 | P.HP ---
Certification for Inpatient Patient admitted to: Inpatient With expected LOS: <2 Midnights Patient will require the following post-hospital care: None Practitioner: I am a practitioner with admitting privileges, knowledge of patient current condition, hospital course, and medical plan of care. Services: Services provided to patient in accordance with Admission requirements found in Title 42 Section 412.3 of the Code of Federal Regulations Patient History Date of Service: 01/12/23 Reason for admission: Diarrhea History of Present Illness: 77-year-old male with a past medical history of emphysema, bronchitis, diabetes, COPD, cirrhosis presents to the ER with weakness. He reports weakness started 2 weeks ago and is progressively getting worse. She reports dark brown, loose stools she denies blood in stool or hematemesis, seizures, fever, nausea vomiting, chest pain, edema, dizziness. He reports recently started on Synthroid, and symptoms have progressively getting worse. She reports history of EtOH use with dark brown stools but no blood in stools or vomitus. She reports history of esophageal varices with esophageal banding with Dr. Brand. She denies abdominal pain. Plan to admit for cirrhosis, anemia, muscle muscle weakness, he reports he has seen Dr. Brand in the past for esophageal banding. ER course 15:58 BP 176 / 78; Pulse 107; Resp 16; Temp 98.2; Pulse Ox 96% laboratory evaluate WBCs within normal limit macrocytic anemia hemoglobin 8.4, hematocrit 25.3, no left shift, sodium potassium normal, acute on chronic kidney injury BUN 21 creatinine 1.09, transaminitis AST elevated at 69, elevated alk phos 195, UA within normal limits. CT of the abdomen pelvis September 01, 2022 : Stigmata of cirrhosis and prominent splenorenal varicosities, suggestive of portal hypertension Allergies papaya Allergy (Severe, Verified 01/12/23 01:48) Anaphylaxis sulfamethoxazole [From Bactrim] Allergy (Severe, Verified 01/12/23 01:48) Anaphylaxis codeine Allergy (Verified 01/12/23 01:48) Nausea/Vomiting levofloxacin [From Levaquin] Adverse Reaction (Verified 01/12/23 01:48) Nausea/Vomiting metronidazole [From Flagyl] Adverse Reaction (Verified 01/12/23 01:48) Nausea/Vomiting trimethoprim [From Bactrim] Adverse Reaction (Verified 01/12/23 01:48) Nausea/Vomiting IODINE; IODINE CONTAINING Adverse Reaction (Intermediate, Uncoded 01/12/23 01:48) Nausea/Vomiting Home Medications: Paroxetine HCl [Paxil] 20 mg PO DAILY 12/26/11 Glimepiride [Amaryl] 2 mg PO BID 12/22/14 Levothyroxine [Synthroid] 50 mcg PO [id number] 06/24/16 Lisinopril [Zestril] 20 mg PO DAILY 06/24/16 hydrOXYzine HCL [Atarax] 50 mg PO Q8H PRN 06/24/16 - Past Medical/Surgical History Diabetic: Yes - Social History Alcohol use: Yes CD- Drugs: No Caffeine use: Yes Review of Systems 10-point ROS is otherwise unremarkable Physical Examination - Physical Exam General: Alert, In no apparent distress, Oriented x3 HEENT: Atraumatic, Normocephalic, PERRLA Neck: Supple, 2+ carotid pulse no bruit, JVD not distended Respiratory: Clear to auscultation bilaterally, Normal air movement, Diminished Cardiovascular: No edema, Normal pulses, Regular rate/rhythm Capillary refill: <2 Seconds Gastrointestinal: Normal bowel sounds, Soft and benign Musculoskeletal: No clubbing, No swelling Integumentary: No rashes, No breakdown Neurological: Normal speech, Normal strength at 5/5 x4 extr, Normal tone - Studies Laboratory Data (last 24 hrs) 01/11/23 01/11/23 01/11/23 17:40 17:40 17:40 WBC 8.90 Hgb 8.4 L Hct 25.5 L Plt Count 175 PT 12.5 INR 1.14 APTT 34.0 Sodium 142 Potassium 3.5 BUN 21 H Creatinine 1.09 H Glucose 108 H Total Bilirubin 1.0 AST 69 H ALT 34 Alkaline Phosphatase 195 H Assessment and Plan - Plan Assessment and plan Cirrhosis esophageal varices Dark stools Acute kidney injury Transaminitis Episodic hypertension Macrocytic anemia Alcohol use Assessment and plan nausea vomiting Cirrhosis esophageal varices Episodic hypertension- propanolol ordered IV octreotide, IV pantoprazole GI consult, occult stool CT of the abdomen pelvis September 01, 2022 : Stigmata of cirrhosis and prominent splenorenal varicosities, suggestive of portal hypertension Acute kidney injury chronic kidney injury BUN 21 creatinine 1.09, Gentle IV fluids Transaminitis transaminitis AST elevated at 69 Macrocytic anemia Anglican refuses blood transfusion macrocytic anemia hemoglobin 8.4, hematocrit 25.3 Ferritin ordered, serum iron,, Folic acid, MVI Alcohol use CIWA protocol, Librium, Ativan, Diet n.p.o. Full code DVT SCDs Discharge Plan: Home Plan to discharge in: 48 Hours - Advance Directives Does patient have a Living Will: No Does patient have a Durable POA for Healthcare: No - Code Status/Comfort Care Code Status: Full Code Physician Review: Patient Assessed, Agree with Above Assessment and Plan Critical Care: No Time Spent Managing Pts Care (In Minutes): 50
[2023-01-11] MEDS: OCTREOTIDE 500 MCG in NA CHLORIDE 0.9% 500 ML IV SCH (22:00)
[2023-01-11] MEDS: PANTOPRAZOLE INJ 80 MG in NA CHLORIDE 0.9% 250 ML IV SCH (22:00)
[2023-01-11] MEDS: hydrOXYzine HCL 25 MG TAB PO PRN (23:59)
[2023-01-11] MEDS: NA CHLORIDE 0.9% 1,000 ML IV SCH (23:59)
[2023-01-12] MEDS: chlordiazePOXIDE HCl 25 MG CAP PO SCH ×5 (00:16→16:58)
[2023-01-12] MEDS: LORazepam 2 MG/ML VIAL IV SCH ×6 (01:07→20:43)
[2023-01-12 02:09] VITALS: BMI 26.2
[2023-01-12] MEDS ORDERED: METOPROLOL TARTRATE 5 MG/5 ML INJ IV PRN (05:20)
[2023-01-12] MEDS: OCTREOTIDE 500 MCG in NA CHLORIDE 0.9% 500 ML IV SCH ×2 (06:39→16:42)
[2023-01-12] MEDS ORDERED: NA CHLORIDE 0.9% 500 ML ONE (06:39)
[2023-01-12] MEDS ORDERED: OCTREOTIDE ACETATE 500 MCG/ML ONE (06:40)
[2023-01-12 06:44] LABS: Absolute Lymphocytes (CBC) 1.5 K/uL (0.7-4.9); Lymphocytes % 25.7 % (15.3-44.8); MPV 9.6 fL (7.6-11.3); Platelets 108 thou/uL (152-406); Protime INR 1.22; RBC Red Blood Cell Count 2.16 M/uL (3.86-4.86)
[2023-01-12 07:09] LABS: Albumin 2.2 g/dL (3.4-5.0); Bilirubin Total 1.1 mg/dL (0.2-1.0); Magnesium 1.8 mg/dL (1.6-2.4); Potassium 3.6 mEq/L (3.5-5.1); Protein, Total 6.1 g/dL (6.4-8.2); Thyroid Stimulating Hormone 0.051 uIU/mL (0.358-3.740)
[2023-01-12] MEDS: INSULIN LISPRO 100 UNIT/1 ML SQ SCH ×4 (07:30→20:25)
[2023-01-12] MEDS: PANTOPRAZOLE INJ 80 MG in NA CHLORIDE 0.9% 250 ML IV SCH ×2 (08:20→16:42)
[2023-01-12] MEDS: PROPRANOLOL HCL 10 MG TAB PO SCH ×2 (08:22→20:22)
[2023-01-12] MEDS ORDERED: POTASSIUM 25 MEQ EFFERV TAB PO ONE (09:00)
[2023-01-12 09:30] LABS: White Blood Cell Scan OK (OK)
[2023-01-12 09:31] LABS: Blood Morphology Comment NOT SEEN (NOT SEEN); Platelet Estimate DECR
[2023-01-12] MEDS: NA CHLORIDE 0.9% 1,000 ML IV SCH (12:15)
--- NOTE | 2023-01-12 12:27 | EKG ---
Test Date: 2023-01-11 Test Time: 17:57:02 Flaring Machine Operator: FRANTZ MEASUREMENT RESULTS: Intervals: Rate: 100 ND: 152 QRSD: 72 QT: 368 QTc: 474 [place]: P: 76 ND: 152 QRS: 65 T: 70 INTERPRETIVE STATEMENTS: Normal sinus rhythm Cannot rule out Anterior infarct, age undetermined Abnormal ECG Compared to ECG 01/20/2015 12:45:40 Myocardial infarct finding now present Sinus arrhythmia no longer present Electronically Signed On 01-12-23 12:24:52 CDT by Jamison Mccoy
--- NOTE | 2023-01-12 17:54 | P.PN ---
Subjective Date of Service: 01/12/23 Chief Complaint: Diarrhea Patient has no new complaint except generalized weakness. She denies melena today. Physical Examination - Vital Signs Temperature: 99.2 F Blood Pressure: 174/73 Pulse: 80 Respirations: 18 Pulse Ox (%): 89 - Studies Laboratory Data (last 24 hrs) 01/11/23 01/11/23 01/11/23 17:40 17:40 17:40 WBC 8.90 Hgb 8.4 L Hct 25.5 L Plt Count 175 PT 12.5 INR 1.14 APTT 34.0 Sodium 142 Potassium 3.5 BUN 21 H Creatinine 1.09 H Glucose 108 H Total Bilirubin 1.0 AST 69 H ALT 34 Alkaline Phosphatase 195 H Assessment And Plan - Plan Physical Exam General: Alert, In no apparent distress, Oriented x3 HEENT: Anicteric sclera Neck: Supple, JVD not distended Respiratory: Clear to auscultation bilaterally, Normal air movement, Diminished Cardiovascular: No edema, Normal pulses, Regular rate/rhythm Gastrointestinal: Normal bowel sounds, Soft and benign, nontender. Musculoskeletal: No swelling Integumentary: No rashes, No breakdown Neurological: Normal speech, no focal motor deficit. Diagnosis Liver cirrhosis History of esophageal varices. Microcytic anemia Alcohol use Hypertension Assessment and plan nausea vomiting Cirrhosis esophageal varices Hypertension History of portal hypertension Propranolol IV octreotide, IV pantoprazole given anemia. Prophylactic IV Rocephin. GI consulted Macrocytic anemia Patient is a Synagogue and against blood transfusion macrocytic anemia hemoglobin 8.4, hematocrit 25.3 Ferritin ordered, serum iron,, Folic acid, MVI PT consult for generalized weakness. Alcohol use [facility] protocol Diet n.p.o. Full code DVT SCDs Discharge Plan: Home
[2023-01-12] MEDS: NA CHLORIDE 0.9% 1,000 ML ONE ×2 (18:20→18:23)
[2023-01-12] MEDS ORDERED: propofoL 200 MG/20 ML VIAL IV ONE (18:53)
[2023-01-12] MEDS: MAGNESIUM CITRATE 300 ML BOT PO SCH (19:24)
[2023-01-12] MEDS ORDERED: BISACODYL E.C. 5 MG TAB PO ONE (20:00)
[2023-01-12] MEDS: METOCLOPRAMIDE 10 MG/2mL INJ IV SCH (20:22)
[2023-01-12] MEDS: GOLYTELY 4000 ML PO SCH (20:23)
[2023-01-13] MEDS: LORazepam 2 MG/ML VIAL IV SCH ×5 (00:35→17:07)
[2023-01-13] MEDS: PANTOPRAZOLE INJ 80 MG in NA CHLORIDE 0.9% 250 ML IV SCH ×4 (01:00→22:26)
[2023-01-13] MEDS: OCTREOTIDE 500 MCG in NA CHLORIDE 0.9% 500 ML IV SCH ×4 (01:00→22:25)
[2023-01-13] MEDS: METOCLOPRAMIDE 10 MG/2mL INJ IV SCH ×2 (01:10→09:07)
[2023-01-13] MEDS: chlordiazePOXIDE HCl 25 MG CAP PO SCH ×4 (05:22→17:48)
[2023-01-13 07:29] LABS: Absolute Lymphocytes (CBC) 1.8 K/uL (0.7-4.9); Hematocrit 25.6 % (36.0-45.0); MCV 102.5 fL (80-100); MPV 9.8 fL (7.6-11.3); Platelets 169 thou/uL (152-406)
[2023-01-13 07:30] LABS: Protime INR 1.24
[2023-01-13] MEDS: INSULIN LISPRO 100 UNIT/1 ML SQ SCH ×4 (07:30→20:31)
[2023-01-13 07:34] LABS: Albumin 2.3 g/dL (3.4-5.0); Bilirubin Total 1.3 mg/dL (0.2-1.0); Magnesium 1.9 mg/dL (1.6-2.4); Potassium 3.8 mEq/L (3.5-5.1); Protein, Total 6.5 g/dL (6.4-8.2)
[2023-01-13] MEDS ORDERED: POTASSIUM 25 MEQ EFFERV TAB PO ONE (09:00)
[2023-01-13] MEDS: PROPRANOLOL HCL 10 MG TAB PO SCH ×2 (09:08→20:31)
--- NOTE | 2023-01-13 18:21 | P.PN ---
Subjective Date of Service: 01/13/23 Chief Complaint: Diarrhea Patient has no new complaint. She is maintained on 3 L oxygen by nasal cannula. Physical Examination - Vital Signs Temperature: 98.1 F Blood Pressure: 164/74 Pulse: 71 Respirations: 16 Pulse Ox (%): 86 Assessment And Plan - Plan Physical Exam General: Alert, In no apparent distress, Oriented x3 HEENT: Anicteric sclera Neck: Supple, JVD not distended Respiratory: Clear to auscultation bilaterally, Normal air movement, Diminished Cardiovascular: No edema, Normal pulses, Regular rate/rhythm Gastrointestinal: Normal bowel sounds, Soft and benign, nontender. Musculoskeletal: No swelling Integumentary: No rashes, No breakdown Neurological: Normal speech, no focal motor deficit. Diagnosis Liver cirrhosis History of esophageal varices. Microcytic anemia Alcohol use Hypertension Assessment and plan nausea vomiting Cirrhosis esophageal varices Hypertension History of portal hypertension Continue propranolol IV octreotide, IV pantoprazole given anemia. Prophylactic IV Rocephin. Status post EGD and patient noted to have hemorrhagic gastritis. Dr. Bourgeois recommended colonoscopy tomorrow but patient refused the colonoscopy prep. Macrocytic anemia Patient is a Worship and against blood transfusion Hemoglobin has been stable so far. Folic acid, MVI PT consult for generalized weakness. Patient refused PT evaluation. Alcohol use Monitor for alcohol withdrawal. Full code DVT SCDs Discharge Plan: Home
--- NOTE | 2023-01-13 18:27 | P.DS ---
Admission Date: 01/11/23 Discharge Date: 01/16/23 Disposition: ID HOME/HOME HEALTH CARE Discharge Condition: FAIR Reason for Admission: Diarrhea Brief History of Present Illness: 77-year-old male with a past medical history of emphysema, bronchitis, diabetes, COPD, cirrhosis who presented to the ER with weakness. He reports weakness started 2 weeks ago and is progressively getting worse. She reports dark brown, loose stools she denies blood in stool or hematemesis, seizures, fever, nausea vomiting, chest pain, edema, dizziness. He reports recently started on Synthroid, and symptoms have progressively getting worse. She reported history of EtOH use with dark brown stools but no blood in stools or vomitus. She reports history of esophageal varices with esophageal banding with Dr. Brand. She denied abdominal pain. ER course 15:58 BP 176 / 78; Pulse 107; Resp 16; Temp 98.2; Pulse Ox 96% laboratory evaluate WBCs within normal limit macrocytic anemia hemoglobin 8.4, hematocrit 25.3, no left shift, sodium potass ium normal, acute on chronic kidney injury BUN 21 creatinine 1.09, transaminitis AST elevated at 69, elevated alk phos 195, UA within normal limits. CT of the abdomen pelvis September 01, 2022 : Stigmata of cirrhosis and prominent splenorenal varicosities, suggestive of portal hypertension. Patient was hospitalized for further management. Hospital Course: Diagnosis Liver cirrhosis History of esophageal varices. Microcytic anemia Alcohol use Hypertension Patient was admitted to the medical floor and the following medical problems addressed: Assessment and plan nausea vomiting Cirrhosis esophageal varices Hypertension History of portal hypertension Patient started on oral propranolol IV octreotide, IV pantoprazole given anemia. Patient seen by Dr. Bourgeois,status post EGD and patient noted to have hemorrhagic gastritis. Dr. Bourgeois recommended colonoscopy tomorrow but patient refused the colonoscopy prep. Patient is prescribed Protonix on discharge. Hemoglobin was stable. Patient did not require blood transfusion. Chronic respiratory failure with hypoxia/COPD/emphysema Home oxygen ordered on discharge. Patient was requiring 6 L of oxygen by nasal cannula. She opted to go home with hospice. Macrocytic anemia Patient is a L[employer] day and against blood transfusion Hemoglobin has been stable so far. Folic acid, MVI PT consulted for generalized weakness. Patient refused PT evaluation. Alcohol use No signs of alcohol withdrawal noted. Vital Signs/Physical Exam: Temp Pulse Resp BP Pulse Ox 98.1 F 71 16 164/74 H 86 L 01/13/23 18:21 01/13/23 18:21 01/13/23 18:21 01/13/23 18:21 01/13/23 18:21 General: Alert, In no apparent distress, Other (Frail-appearing.) HEENT: Mucous membr. moist/pink Neck: JVD not distended Respiratory: Clear to auscultation bilaterally, Normal air movement Cardiovascular: No edema, Regular rate/rhythm, Normal S1 S2 Gastrointestinal: Soft and benign, Non-distended, No tenderness Musculoskeletal: No swelling Neurological: Normal strength at 5/5 x4 extr Laboratory Data at Discharge: WBC 9.70 thou/uL (4.3-10.9) 01/13/23 07:00 Hgb 8.7 g/dL (12.0-15.0) L D 01/13/23 07:00 Hct 25.6 % (36.0-45.0) L 01/13/23 07:00 Plt Count 169 thou/uL (152-406) D 01/13/23 07:00 PT 13.6 SECONDS (9.5-12.5) H 01/13/23 07:00 INR 1.24 01/13/23 07:00 APTT 34.0 SECONDS (24.3-36.9) 01/11/23 17:40 Sodium 143 mEq/L (136-145) 01/13/23 07:00 Potassium 3.8 mEq/L (3.5-5.1) 01/13/23 07:00 BUN 20 mg/dL (7-18) H 01/13/23 07:00 Creatinine 1.15 mg/dL (0.55-1.02) H 01/13/23 07:00 Glucose 124 mg/dL (74-106) H 01/13/23 07:00 Phosphorus 2.7 mg/dL (2.5-4.9) 01/13/23 07:00 Magnesium 1.9 mg/dL (1.6-2.4) 01/13/23 07:00 Total Bilirubin 1.3 mg/dL (0.2-1.0) H 01/13/23 07:00 AST 58 U/L (15-37) H 01/13/23 07:00 ALT 24 U/L (13-56) 01/13/23 07:00 Alkaline Phosphatase 157 U/L (45-117) H 01/13/23 07:00 Home Medications: Levothyroxine [Synthroid*] 50 mcg PO [id number] 06/24/16 Lisinopril [Zestril] 20 mg PO DAILY 06/24/16 Propranolol [Inderal*] 20 mg PO BID #60 tab 01/13/23 New Medications: Propranolol [Inderal*] 20 mg PO BID #60 tab Diet: AHA Activity: Fall precautions Followup: Nohemi Gar MD [Primary Care Provider] - 1-2 Weeks Time spent managing pt's care (in minutes): 38
[2023-01-13] MEDS: GOLYTELY 4000 ML PO SCH (19:24)
[2023-01-13] MEDS: MAGNESIUM CITRATE 300 ML BOT PO SCH (19:24)
--- NOTE | 2023-01-13 21:31 | P.PN ---
Subjective Date of Service: 01/13/23 Chief Complaint: Melena, anemia, change in bowel habits / diarrhea Subjective: New changes (Patient refuses colonoscopy prep. Hemorrhagic gastritis can help explain anemia / GI bleed.) Physical Examination - Vital Signs Temperature: 98.1 F Blood Pressure: 154/74 Pulse: 71 Respirations: 16 Pulse Ox (%): 86 Assessment And Plan - Plan REC: 1) continue PPI therapy 2) advance diet: CLs, FLs, GI soft Physician Review: Patient Assessed, Agree with Above Assessment and Plan
[2023-01-13] MEDS: hydrOXYzine HCL 25 MG TAB PO PRN (22:32)
[2023-01-14] MEDS: chlordiazePOXIDE HCl 25 MG CAP PO SCH ×5 (05:47→23:49)
[2023-01-14 06:53] LABS: Absolute Lymphocytes (CBC) 1.9 K/uL (0.7-4.9); Hematocrit 24.9 % (36.0-45.0); Lymphocytes % 24.3 % (15.3-44.8); MCV 103.1 fL (80-100); MPV 9.6 fL (7.6-11.3); Platelets 155 thou/uL (152-406); RBC Red Blood Cell Count 2.41 M/uL (3.86-4.86)
[2023-01-14 06:59] LABS: Protime INR 1.22
[2023-01-14 07:15] LABS: Albumin 2.1 g/dL (3.4-5.0); Bilirubin Total 1.1 mg/dL (0.2-1.0); Potassium 3.8 mEq/L (3.5-5.1); Protein, Total 5.9 g/dL (6.4-8.2)
[2023-01-14] MEDS: INSULIN LISPRO 100 UNIT/1 ML SQ SCH ×4 (07:30→20:39)
[2023-01-14] MEDS ORDERED: ALBUTEROL 2.5 MG/3 ML NEB SOL NEB ONE (08:06)
[2023-01-14] MEDS ORDERED: POTASSIUM 25 MEQ EFFERV TAB PO ONE (08:06)
[2023-01-14] MEDS: OCTREOTIDE 500 MCG in NA CHLORIDE 0.9% 500 ML IV SCH ×2 (08:26→17:00)
[2023-01-14] MEDS: PANTOPRAZOLE INJ 80 MG in NA CHLORIDE 0.9% 250 ML IV SCH ×2 (08:27→17:00)
[2023-01-14] MEDS: PROPRANOLOL HCL 10 MG TAB PO SCH ×2 (10:00→20:37)
--- NOTE | 2023-01-14 15:56 | P.PN ---
Subjective Date of Service: 01/14/23 Chief Complaint: Melena, anemia, change in bowel habits / diarrhea Patient has been hypoxic on 3 L oxygen by nasal cannula. She denies any melena. Physical Examination - Vital Signs Temperature: 98.8 F Blood Pressure: 169/74 Pulse: 67 Respirations: 22 Pulse Ox (%): 90 Assessment And Plan - Plan Physical Exam General: Alert, In no apparent distress, Oriented x3 HEENT: Anicteric sclera Neck: Supple, JVD not distended Respiratory: Clear to auscultation bilaterally, Normal air movement, Diminished Cardiovascular: No edema, Normal pulses, Regular rate/rhythm Gastrointestinal: Normal bowel sounds, Soft and benign, nontender. Musculoskeletal: No swelling Integumentary: No rashes, No breakdown Neurological: Normal speech, no focal motor deficit. Diagnosis Liver cirrhosis History of esophageal varices. Microcytic anemia Alcohol use Hypertension Assessment and plan nausea vomiting Cirrhosis esophageal varices Hypertension History of portal hypertension Continue propranolol IV octreotide, IV pantoprazole given anemia. Transition to oral Protonix on discharge. Status post EGD and patient noted to have hemorrhagic gastritis. Dr. Bourgeois recommended colonoscopy but patient refused the colonoscopy prep. Macrocytic anemia Patient is a Ep[employer] and against blood transfusion Hemoglobin has been stable so far. Folic acid, MVI PT consulted for generalized weakness. Patient refused PT evaluation. Alcohol use Monitor for alcohol withdrawal. Acute on chronic respiratory failure with hypoxia/COPD/emphysema Patient with baseline emphysema I suspect interstitial edema contributing to the hypoxia given history of liver cirrhosis. Trial of IV Lasix Nebs and bronchodilators. We will avoid steroid for now given hemorrhagic gastritis. Full code DVT SCDs Discharge Plan: Home
[2023-01-14] MEDS: FUROSEMIDE 40 MG/4 ML VIAL IV SCH ×2 (16:47→17:00)
--- NOTE | 2023-01-14 17:20 | RAD REPORT ---
EXAM DESCRIPTION: RAD - Chest Single View - 01/14/2023 5:09 pm CLINICAL HISTORY: Hypoxia Chest pain. COMPARISON: Chest Pa And Lat (2 Views) dated 02/25/2016; CHEST SINGLE VIEW dated 07/30/2015; CHEST SI NGLE VIEW dated 01/20/2015; CHEST PA AND LAT 2 VIEW dated 06/16/2014 FINDINGS: Portable technique limits examination quality. Moderate bilateral pulmonary opacities likely represents pneumonia or pulmonary edema. The heart is u pper limit normal in size. No displaced fractures.
--- NOTE | 2023-01-14 18:48 | P.PN ---
Subjective Date of Service: 01/14/23 Chief Complaint: Melena, anemia, change in bowel habits / diarrhea Subjective: Improving (She feels well and is without complaint. She denies GI bleeding. Tolerating po diet. No diarrhea. She wants to go home.) Review of Systems 10-point ROS is otherwise unremarkable General: Weakness (Improved.), Malaise (Improved.) Physical Examination - Vital Signs Temperature: 98.6 F Blood Pressure: 169/74 Pulse: 67 Respirations: 22 Pulse Ox (%): 85 - Physical Exam General: Alert, In no apparent distress, Oriented x3, Cooperative HEENT: Atraumatic, Normocephalic, PERRLA, EOMI Neck: Supple Respiratory: Normal air movement Cardiovascular: Normal pulses Gastrointestinal: Soft and benign, No tenderness, No rebound, No guarding, Distended (Mild prominence of abdomen) Neurological: Normal speech, Normal strength at 5/5 x4 extr Assessment And Plan - Plan REC: 1) change PPI therapy from IV drip to 40 mg po bid 2) advance diet: FLs, GI soft 3) wean off IV Octreotide Physician Review: Patient Assessed, Agree with Above Assessment and Plan
[2023-01-14] MEDS: MAGNESIUM CITRATE 300 ML BOT PO SCH (19:24)
[2023-01-14] MEDS: PANTOPRAZOLE 40MG TABLET PO SCH (20:37)
[2023-01-15] MEDS: chlordiazePOXIDE HCl 25 MG CAP PO SCH ×3 (05:02→18:00)
[2023-01-15 05:59] LABS: Potassium 4.2 mEq/L (3.5-5.1)
[2023-01-15] MEDS: INSULIN LISPRO 100 UNIT/1 ML SQ SCH ×4 (07:30→21:00)
[2023-01-15] MEDS: PROPRANOLOL HCL 10 MG TAB PO SCH ×2 (09:00→20:24)
[2023-01-15] MEDS: PANTOPRAZOLE 40MG TABLET PO SCH ×2 (09:00→18:06)
[2023-01-15] MEDS: FUROSEMIDE 40 MG/4 ML VIAL IV SCH (09:01)
[2023-01-15 16:16] LABS: Blood O2 Saturation 70.4 % (92-98.5)
--- NOTE | 2023-01-15 17:34 | P.PN ---
Subjective Date of Service: 01/15/23 Chief Complaint: Melena, anemia, change in bowel habits / diarrhea Patient has been hypoxic on 3 L oxygen by nasal cannula. Oxygen increased to 6 - 8 L She is tolerating diet. Physical Examination - Vital Signs Temperature: 98.6 F Blood Pressure: 157/68 Pulse: 63 Respirations: 18 Pulse Ox (%): 84 Assessment And Plan - Plan Physical Exam General: Alert, In no apparent distress, Oriented x3 Neck: JVD not distended Respiratory: Clear to auscultation bilaterally, Diminished Cardiovascular: No edema, Normal pulses, Regular rate/rhythm Gastrointestinal: Normal bowel sounds, Soft and benign, nontender. Musculoskeletal: No swelling Integumentary: No rashes, No breakdown Neurological: Normal speech, no focal motor deficit. Diagnosis Liver cirrhosis History of esophageal varices. Microcytic anemia Alcohol use Hypertension Assessment and plan nausea vomiting Cirrhosis esophageal varices Hypertension History of portal hypertension Continue propranolol Oral Protonix. Discontinue octreotide. Status post EGD and patient noted to have hemorrhagic gastritis. Dr. Bourgeois recommended colonoscopy but patient refused the colonoscopy prep. Macrocytic anemia Patient is a Shinto and against blood transfusion Hemoglobin has been stable so far. Folic acid, MVI PT consulted for generalized weakness. Patient refused PT evaluation. Alcohol use No sign of alcohol withdrawal. Acute on chronic respiratory failure with hypoxia/COPD exacerbation/emphysema Patient with baseline emphysema I suspect interstitial edema contributing to the hypoxia given history of liver cirrhosis. Chest x-ray demonstrated possible pulmonary edema. Continue IV Lasix Nebs and bronchodilators. We will avoid steroid for now given hemorrhagic gastritis. Full code DVT SCDs Discharge Plan: Home
[2023-01-15] MEDS: MAGNESIUM CITRATE 300 ML BOT PO SCH (19:24)
[2023-01-16 05:26] VITALS: O2SAT 85
[2023-01-16] MEDS: chlordiazePOXIDE HCl 25 MG CAP PO SCH ×4 (06:00→18:06)
[2023-01-16 07:20] LABS: Absolute Lymphocytes (CBC) 1.7 K/uL (0.7-4.9); Hematocrit 25.1 % (36.0-45.0); Lymphocytes % 24.2 % (15.3-44.8); MCV 101.1 fL (80-100); MPV 9.4 fL (7.6-11.3); Platelets 177 thou/uL (152-406); RBC Red Blood Cell Count 2.48 M/uL (3.86-4.86)
[2023-01-16] MEDS: INSULIN LISPRO 100 UNIT/1 ML SQ SCH ×4 (07:30→21:00)
[2023-01-16 07:31] LABS: Albumin 2.1 g/dL (3.4-5.0); Magnesium 1.9 mg/dL (1.6-2.4); Protein, Total 6.1 g/dL (6.4-8.2)
--- NOTE | 2023-01-16 07:35 | RAD REPORT ---
EXAM DESCRIPTION: RAD - Chest Single View - 01/16/2023 6:32 am CLINICAL HISTORY: sob COMPARISON: Chest Single View dated 01/14/2023; Chest Pa And Lat (2 Views) dated 02/25/2016; CHEST SIN GLE VIEW dated 07/30/2015; CHEST SINGLE VIEW dated 01/20/2015 FINDINGS: Lines: None. Lungs: Irregular airspace disease present bilaterally. Aeration is slightly improved in the right awais g base. Calcified right upper lobe nodule. Pleural: Small pleural effusions difficult to exclude . Cardiac: Cardiomegaly. Mediastinum: Within normal limits. Bones: No acute fractures. Other: None IMPRESSION: Slightly improved aeration of the lungs which may reflect a edema and/or pneumonia.
[2023-01-16] MEDS: PANTOPRAZOLE 40MG TABLET PO SCH ×2 (08:05→16:00)
[2023-01-16] MEDS: PROPRANOLOL HCL 10 MG TAB PO SCH ×2 (09:11→21:32)
[2023-01-16] MEDS: FUROSEMIDE 40 MG TABLET PO SCH ×2 (09:12→17:40)
[2023-01-16] MEDS: MAGNESIUM CITRATE 300 ML BOT PO SCH (19:24)
[2023-01-16 21:11] VITALS: BP 184/74; TEMP 98.1
== END 2023-01-16 22:35 | disposition hospice, home (50) | DRG 432 ==
LOC: ER 15:25 → ERHOLD 20:37 → 4TH 21:30
PROVIDERS: ADMIT Internal Medicine; ATTEND Internal Medicine
PROC: 0DB78ZX Excision of Stomach, Pylorus, Via Natural or Artificial Opening Endoscopic, Diagnostic (ICD-10-PCS; 2023-01-12)
PROC: 0DB68ZX Excision of Stomach, Via Natural or Artificial Opening Endoscopic, Diagnostic (ICD-10-PCS; principal; 2023-01-12 17:00)
DX: K74.60 Unspecified cirrhosis of liver (principal); J96.21 Acute and chronic respiratory failure with hypoxia; K29.01 Acute gastritis with bleeding; N17.9 Acute kidney failure, unspecified; I85.10 Secondary esophageal varices without bleeding; I12.9 Hypertensive chronic kidney disease with stage 1 through stage 4 chronic kidney disease, or unspecified chronic kidney disease; N18.9 Chronic kidney disease, unspecified; E11.22 Type 2 diabetes mellitus with diabetic chronic kidney disease; D63.1 Anemia in chronic kidney disease; D53.9 Nutritional anemia, unspecified; J43.9 Emphysema, unspecified; K44.9 Diaphragmatic hernia without obstruction or gangrene; R74.01 Elevation of levels of liver transaminase levels; Z51.5 Encounter for palliative care; Z88.5 Allergy status to narcotic agent; Z88.8 Allergy status to other drugs, medicaments and biological substances; Z88.1 Allergy status to other antibiotic agents; Z79.84 Long term (current) use of oral hypoglycemic drugs; Z91.018 Allergy to other foods; Z79.890 Hormone replacement therapy; Z79.899 Other long term (current) drug therapy; Z20.822 Contact with and (suspected) exposure to COVID-19
CPT/HCPCS: 36415; 71045; 80048; 80053; 80076; 81001; 82077; 82140; 82607; 82728; 82805; 82947; 83540; 83735; 83880; 84100; 84439; 84443; 84466; 84484; 85025; 85610; 85730; 87811; 88305; 88312; 93005; 94640; 99285; C9113; J1815; J1940; J2354; J2704; J2765; J7030; J7040; J7050; J7613